=== PATIENT | male | born 1950 | race Caucasian/White ===

== ENCOUNTER 2025-09-19 12:20 | Emergency (ER) | payer MEDICARE, SELFPAY ==
--- NOTE | ~2025-09-19 | CT_ITS ---
EXAMINATION: CT abdomen pelvis w con DATE: 09/19/2025 13:43 INDICATION: Abdominal pain TECHNIQUE: Computed tomography (CT) of the abdomen and pelvis was performed with 100 mL Omnipaque-350 intravenous contrast. Automated exposure control and iterative reconstruction technique were employed. The dose-length product was 527.77 mGy-cm. COMPARISON: None FINDINGS: Mild dependent atelectasis in bilateral lower lobes. Heart size is normal. Atherosclerotic coronary artery calcification and aortic valve calcification. No pericardial or pleural effusion. Liver, gallbladder, spleen, pancreas, bilateral adrenal glands are normal. Bilateral renal cysts the largest on the left measuring 2.3 cm. There are few tiny calcifications at the bilateral renal yulissa which appear more likely to represent atherosclerotic calcifications as opposed to nonobstructing renal stones. Bladder is normal. Prostatomegaly 5.6 x 3.7 cm in maximal diameter. The colon and proximal small bowel is relatively decompressed. There are multiple loops of mildly dilated gas-filled loops of small bowel predominantly in the anterior left abdomen consistent with bowel obstruction. There appears to be a transition point anterior to the right kidney where the bowel appears to foraminal around the mesentery. There is air-fluid level within a larger diameter loop of bowel in the anterior right upper quadr ant possibly representing the cecum. There is no abnormal course of the proximal small bowel with the 2 due to jejunal junction is positioned to the right of the aorta but still to the left of the superior mesenteric artery and veins which are deviated towards the right abdomen. Is unclear whether this represents a developmental bowel malrotation or whether this results from mass effect from the dilated loops of bowel in the left abdomen. There does appear to be relatively decreased enhancement of the bowel mucosa of several the fluid-filled loops of bowel in the right abdomen when compared with the fluid-filled loops of bowel in the left abdomen which does raise some concern for secondary ischemia. Gas and fluid distends the proximal stomach however this remains separate from the dilated small bowel with of the decompressed intervening duodenum and proximal jejunum. There is calcified atherosclerosis of the aorta and many of the other arteries. 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 No free intraperitoneal gas or fluid. No pathologically enlarged abdominal or pelvic lymphadenopathy. Severe lumbar and lower thoracic spondylosis with chronic appearing L1 compression fracture with superimposed Schmorl's node along the depressed superior endplate. IMPRESSION: 1. Small bowel obstruction with transition point in the right lower quadrant with bowel appears to swallow around the mesenteric vascular pedicle raising suspicion for a volvulus potentially related to a developmental malrotation as detailed above. The bowel mucosa is very difficult to discern with the loops of bowel in the anterior right abdomen particularly when compared with the clearly delineate mucosal enhancement of the fluid-filled bowels in the left abdomen which raises concern for secondary ischemia. Dr. Reese discussed these findings with Dr. Perales at 12:05 PM. Reviewed, dictated and finalized at location A. D STRATEGY MANAGER IMPRESSION: 1. Small bowel obstruction with transition point in the right lower quadrant wi th bowel appears to swallow around the mesenteric vascular pedicle raising susp icion for a volvulus potentially related to a developmental malrotation as deta iled above. The bowel mucosa is very difficult to discern with the loops of bow el in the anterior right abdomen particularly when compared with the clearly de lineate mucosal enhancement of the fluid-filled bowels in the left abdomen whic h raises concern for secondary ischemia. Dr. Reese discussed these findings with Dr. Perales at 12:05 PM.
[2025-09-19 12:49] VITALS: BP 151/79; PULSE 72; RESP 20; TEMP 36.7; O2SAT 100
--- NOTE | 2025-09-19 12:53 | ED_ITS ---
HPI - Abdominal Pain General Chief Complaint: Abdominal Pain Stated Complaint: weakness after attempting bm Source: patient, family and EMS History of Present Illness HPI narrative: 75 years old white male came from home by ambulance with his family complaining of abdominal pain started this morning, steady, denies any fever, chills, nausea, vomiting, or constipation. Patient reports history of diarrhea, 3-4 times a day for the last 2 years, did not see any physician for that before. Patient did not eat his breakfast today, received all his morning medications,. Reports sneezing over the last few days. History of hypertension, hyperlipidemia, poor peripheral circulation. Patient smokes cigarettes, drink alcohol daily, denies drug use. Patient denies any history of abdominal surgery. Related Data Home Medications ?Medication ?Instructions ?Recorded ?Confirmed ?Last Taken ?Type atorvastatin 40 mg tablet (Lipitor) 40 mg PO DAILY 11/01 Unknown History cilostazol 100 mg tablet 100 mg PO BID 09/19/25 Unkn own History clopidogrel 75 mg tablet 75 mg PO DAILY 09/19/25 Unk nown History lisinopril 40 mg tablet 40 mg PO DAILY 09/19/25 Unk nown History Allergies Allergy/AdvReac Type Severity Reaction Status Date / Time Penicillins Allergy Mild Unknown Verified 09/19/25 12:47 read meat Allergy Mild Unknown Uncoded 09/19/25 12:47 Review of Systems 2 Review of Systems: All systems reviewed & are unremarkable except as noted in HPI and below Exam 2 Narrative: General appearance: Well-developed, well-nourished Skin: Normal color Head: Normocephalic, nontraumatic Eyes: Clear conjunctiva ENT: Oropharynx normal, ears normal, nose normal Neck: Supple, nontender Chest and respiratory: Airway patent, no respiratory distress, no accessory muscle use Heart: Regular rate/rhythm Abdomen: Soft, diffuse tenderness epigastric and right upper quadrant, questionable hepatomegaly Vascular: Normal peripheral pulses, normal capillary refill. Musculoskeletal: Normal range of motion, nontender back Neurologic: Alert and oriented ?3, JAVASCRIPT PROGRAMMER is normal as tested, no gross motor deficit Course Vital Signs Vital signs: Vital Signs Temperature 36.7 C 09/19/25 12:49 Pulse Rate 72 09/19/25 12:49 Respiratory Rate 20 09/19/25 12:49 Blood Pressure 151/79 H 09/19/25 12:49 Pulse Oximetry 100 09/19/25 12:49 Oxygen Delivery Room Air 09/19/25 12:49 Temperature 36.7 C 09/19/25 12:49 Pulse Rate 72 09/19/25 12:49 Respiratory Rate 20 09/19/25 12:49 Blood Pressure 151/79 H 09/19/25 12:49 Pulse Oximetry 100 09/19/25 12:49 Oxygen Delivery Room Air 09/19/25 12:49 MDM - Abdominal Pain MDM Narrative Medical decision making narrative: Patient presents with abdominal pain started this morning Vital signs showing blood pressure 151/79 otherwise within normal limit Physical examination showing tenderness epigastric and right upper quadrant area otherwise within normal limit Differential diagnosis include: Cholecystitis, appendicitis, pancreatitis, esophagitis, gastritis, hepatomegaly, alcoholic hepatitis, diverticulitis, colitis, or urinary tract infection Blood workup today includes CBC, CMP, lipase, lactic acid, troponin and coags showed WBC 11.7, total bilirubin 1.8, otherwise within normal limit Patient tested negative for COVID flu RSV EKG showed normal sinus rhythm CT abdomen and pelvis with IV contrast showed small-bowel obstruction, questionable volvulus, secondary ischemia Patient requested to go to [facility] Accepted by Dr. Iqbal. The surgeon on-call Differential Diagnosis Differential diagnosis: Likely other (As above) Lab Data Attestation: I reviewed the patient's lab results. 09/19/25 13:07 09/19/25 13:07 Labs: Lab Results 09/19/25 09/19/25 Range/Units 12:59 13:07 WBC 11.7 H (4.8-10.8) K/mm3 RBC 3.94 L (4.70-6.10) M/mm3 Hgb 14.0 (12.4-15.3) g/dL Hct 39.6 (37.0-46.0) % MCV 100.5 (78.0-102.0) fL MCH 35.5 H (27.0-31.0) pg MCHC 35.4 (32-36) g/dL RDW 12.1 (11.6-14.4) % Plt Count 245 (150-420) K/mm3 MPV 9.4 (8.7-11.0) fl Immature Gran % (Auto) 0.6 H (0.0-0.0) % Neut % (Auto) 81.9 H (50.0-70.0) % Lymph % (Auto) 11.0 L (18.0-42.0) % Grand % (Auto) 5.7 (2.0-11.0) % Eos % (Auto) 0.4 L (1.0-6.0) % Baso % (Auto) 0.4 (0.0-1.0) % Lymph # (Auto) 1.28 (1.10-4.50) K/mm3 Grand # (Auto) 0.67 (0.10-0.90) K/mm3 Eos # (Auto) 0.05 (0.02-0.50) K/mm3 Baso # (Auto) 0.05 (0.00-0.10) K/mm3 Abs Immat Gran (auto) 0.07 H (0.00-0.00) K/mm3 Absolute Neuts (auto) 9.55 H (1.70-7.20) K/mm3 Absolute Nucleated RBC 0.00 (0.00-0.00) K/mm3 Nucleated RBC % 0.0 (0-0.0) % PT 11.2 (9.50-12.1) Seconds INR 1.0 APTT 26.5 (23.9-30.70) Sec Sodium 139 (137-145) mmol/L Potassium 4.2 (3.4-5.0) mmol/L Chloride 104 (98-107) mmol/L Carbon Dioxide 27 (22-30) mmol/L Anion Gap 8 (4-12) mmol/L BUN 8 L (9-20) mg/dL Creatinine 0.74 (0.7-1.3) mg/dL Estim Creat Clear Calc 71 ml/min Estimated GFR > 60 (59 - ) Glucose 131 H (65-110) mg/dL Calculated Osmolality 288 (285-295) mOsm/kg Lactic Acid 1.4 (0.7-2.0) mmol/L Calcium 9.3 (8.4-10.2) mg/dL Total Bilirubin 1.8 H (0.2-1.3) mg/dL AST 32 (17-59) U/L ALT 20 (6-50) U/L Alkaline Phosphatase 74 (38-126) U/L Troponin I < 0.012 (0.000-0.034) ng/mL Total Protein 7.1 (6.3-8.2) g/dL Albumin 4.7 (3.5-5.1) g/dL Lipase 49 (23-300) U/L Ethyl Alcohol < 10 (<10) mg/dL Influenza A (RT-PCR) Negative (Negative) Influenza B (RT-PCR) Negative (Negative) RSV (RT-PCR) Negative (Negative) SARS-CoV-2 RNA (RT-PCR) Negative (Negative) Imaging Data Radiologist's impression: ITS Impressions Abdomen/Pelvis CT 09/19/25 13:48 IMPRESSION: 1. Small bowel obstruction with transition point in the right lower quadrant with bowel appears to swallow around the mesenteric vascular pedicle raising suspicion for a volvulus potentially related to a developmental malrotation as detailed above. The bowel mucosa is very difficult to discern with the loops of bowel in the anterior right abdomen particularly when compared with the clearly delineate mucosal enhancement of the fluid-filled bowels in the left abdomen which raises concern for secondary ischemia. Dr. Reese discussed these findings with Dr. Perales at 12:05 PM. ECG Data EKG #1: Attestation: I personally reviewed and interpreted this ECG as follows: ECG completion date: 09/19/25 Interpretation: Normal sinus rhythm at 73 beats per minute, poor R-wave progression, possible septal myocardial infarction age indeterminate, borderline EKG Critical Care Time Critical Care Time Critical Care Time: No Discharge Plan Discharge Clinical Impression: Small bowel obstruction, Cecal volvulus Patient Disposition: Acute Care Hospital Condition: Guarded Prognosis Additional Instructions: Transferred to [facility] Patient Language: Belgian Prescriptions: No Action lisinopril 40 mg tablet 40 mg PO DAILY cilostazol 100 mg tablet 100 mg PO BID clopidogrel 75 mg tablet 75 mg PO DAILY atorvastatin [Lipitor] 40 mg tablet 40 mg PO DAILY Follow-up/Referrals: Kaden Abrams MD [Primary Care Provider, Internal Medicine]
--- NOTE | 2025-09-19 12:54 | ECG_ITS ---
Test Date: 2025-09-19 13:15:34 Measurements Intervals [place] Rate: 73 P: 65 ID: [id number] QRS: -18 QRSD: 98 T: 63 QT: 390 QTc: 430 Interpretive Statements SINUS RHYTHM No previous ECG available for comparison Electronically Signed On 09-19-2025 13:24:59 PULVERIZER MILL OPERATOR by Caleb Saenz M.D.
[2025-09-19 13:11] LABS: Hematocrit 39.6 % (37.0-46.0); Hemoglobin 14.0 g/dL (12.4-15.3); Immature Granulocyte Percent A 0.6 % (0.0-0.0); Lymphocytes Absolute Auto 1.28 K/mm3 (1.10-4.50); Mean Corpuscular HGB Conc 35.4 g/dL (32-36); Mean Corpuscular Hemoglobin 35.5 pg (27.0-31.0); Mean Corpuscular Volume 100.5 fL (78.0-102.0); Nucleated Red Blood Cells Absolute Auto 0.00 K/mm3 (0.00-0.00); Nucleated Red Blood Cells Perc 0.0 % (0-0.0); Platelet Count Result 245 K/mm3 (150-420); Red Blood Count 3.94 M/mm3 (4.70-6.10); White Blood Count 11.7 K/mm3 (4.8-10.8)
[2025-09-19] MEDS: HYDROmorphone HCL INJ (*CRX) 2 MG/ML VIAL 0.5 MG IV PUSH ×2 (13:17→13:51)
[2025-09-19] MEDS: ONDANSETRON INJ 4 MG/2 ML VIAL IV PUSH (13:17)
[2025-09-19] MEDS: SODIUM CHLORIDE 0.9% IV 1,000 ML 999 ML IV CONT (13:17)
[2025-09-19 13:24] LABS: Alanine Aminotransferase 20 U/L (6-50); Albumin Level 4.7 g/dL (3.5-5.1); Alkaline Phosphatase 74 U/L (38-126); Anion Gap 8 mmol/L (4-12); Aspartate Amino Transferase 32 U/L (17-59); Blood Urea Nitrogen 8 mg/dL (9-20); Calcium 9.3 mg/dL (8.4-10.2); Carbon Dioxide 27 mmol/L (22-30); Chloride 104 mmol/L (98-107); Estimated CRCL calculation 71 ml/min; Estimated Glomerular Filt Rate > 60; Glucose 131 mg/dL (65-110); Lipase 49 U/L (23-300); Osmolality Calculated 288 mOsm/kg (285-295); Potassium 4.2 mmol/L (3.4-5.0); Sodium 139 mmol/L (137-145); Total Protein 7.1 g/dL (6.3-8.2)
[2025-09-19 13:25] LABS: INR 1.0; Partial Thromboplastin Time 26.5 Sec (23.9-30.70); Prothrombin Time 11.2 Seconds (9.50-12.1)
[2025-09-19 13:35] LABS: Troponin I < 0.012 ng/mL (0.000-0.034)
[2025-09-19 13:48] LABS: Influenza A QL RT-PCR Negative (Negative); Influenza B QL RT-PCR Negative (Negative); RSV RNA, RT-PCR Negative (Negative); SARS-CoV-2 RNA PCR Negative (Negative)
[2025-09-19 14:30] VITALS: BP 137/89; PULSE 93; RESP 20; O2SAT 98
[2025-09-19 15:02] VITALS: BP 124/80; PULSE 90; RESP 20; O2SAT 96
[2025-09-19 15:30] VITALS: BP 147/84; PULSE 90; RESP 20; O2SAT 98
[2025-09-19 16:00] VITALS: BP 134/78; PULSE 89; RESP 20; O2SAT 97
[2025-09-19 16:45] VITALS: BP 138/86; PULSE 91; RESP 20; TEMP 36.7; O2SAT 97
[2025-09-25 13:12] LABS: Bilirubin,Total 0.8 mg/dL (0.2-1.3)
== END 2025-09-19 16:45 | disposition short-term general hospital (02) ==
PROVIDERS: Emergency Provider Emergency Medicine; PCP Internal Medicine
DX: K56.609 Unspecified intestinal obstruction, unspecified as to partial versus complete obstruction (principal); K56.2 Volvulus; I10 Essential (primary) hypertension; E78.5 Hyperlipidemia, unspecified; F17.210 Nicotine dependence, cigarettes, uncomplicated; Z79.899 Other long term (current) drug therapy; Z20.822 Contact with and (suspected) exposure to COVID-19
CPT/HCPCS: 36415; 74177; 80053; 82077; 83605; 83690; 84484; 85025; 85610; 85730; 87637; 93005; 96361; 96374; 96375; 96376; 99285; J1171; J2405; J7030; Q9967

== ENCOUNTER 2025-10-23 14:19 | Outpatient (CLI) | payer MEDICARE, SELFPAY ==
--- NOTE | ~2025-10-23 | XR_ITS ---
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 Findings: No acute fracture or malalignment. No significant degenerative changes. Soft tissues unremarkable. Impression: No acute fracture or malalignment. Reviewed, dictated and finalized at location P. NG MACHINE SET UP OPERATOR Impression: No acute fracture or malalignment.
[2025-10-23 14:35] LABS: Hematocrit 37.0 % (37.0-46.0); Hemoglobin 12.8 g/dL (12.4-15.3); Mean Corpuscular HGB Conc 34.6 g/dL (32-36); Mean Corpuscular Hemoglobin 34.5 pg (27.0-31.0); Mean Corpuscular Volume 99.7 fL (78.0-102.0); Platelet Count Result 293 K/mm3 (150-420); Red Blood Count 3.71 M/mm3 (4.70-6.10); White Blood Count 8.5 K/mm3 (4.8-10.8)
[2025-10-23 14:55] LABS: Alanine Aminotransferase 19 U/L (6-50); Albumin Level 4.2 g/dL (3.5-5.1); Alkaline Phosphatase 86 U/L (38-126); Anion Gap 9 mmol/L (4-12); Aspartate Amino Transferase 28 U/L (17-59); Bilirubin,Total 0.5 mg/dL (0.2-1.3); Blood Urea Nitrogen 6 mg/dL (9-20); CRP < 0.5 mg/dL (<1.0); Calcium 9.1 mg/dL (8.4-10.2); Carbon Dioxide 25 mmol/L (22-30); Chloride 104 mmol/L (98-107); Estimated Glomerular Filt Rate > 60; Glucose 103 mg/dL (65-110); Osmolality Calculated 283 mOsm/kg (285-295); Potassium 3.9 mmol/L (3.4-5.0); Sodium 138 mmol/L (137-145); Total Protein 6.5 g/dL (6.3-8.2); Uric Acid 5.3 mg/dL (3.5-8.5)
--- OUTSIDE RECORDS SUMMARY | 2025-10-23 16:52 | XMS_ITS | Encounter Summary ---
Author Organization [facility] Address [address] [place] [address] Care Team Providers Care Construction Equipment Technician Name Role Phone Rojas Easton MD Primary Care Provider [phone] Luis Daniel Rose MD Unavailable [phone] Ziggy Ramos MD Unavailable [phone] Gus Currie MD Unavailable [phone] Kaden Abrams MD Primary Care Provider [phone] Encounter Details Date Type Department Care Team ([facility] Contact Info) Description 03/14/2024 Prep for Procedure [facility] eld [address] [place] [address] Ziggy Ramos MD [address] [facility] [address] [place] [address] Social History Tobacco Use Types Packs/Day Years Used Date Smoking Tobacco: Every Day Cigarettes 1 60 Started: 1968 Smokeless Tobacco: Never Alcohol Use Standard Drinks/Week Comments Yes 0 (1 standard drink = 0.6 oz pur e alcohol) Beer AUDIT-C Answer Date Recorded Frequency of Alcohol Consumption 4 or more times a week 07/19/2019 Average Number of Drinks 7 to 9 019 Frequency of Binge Drinking Not on file 07/09 Sex and Gender Information Value Date Recorded Sex Assigned at Male 12/19/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 Wish to be (Past 1 Month) No 03/16/2024 8:06 AM CDT Marisol Flores RN Active 2. Non-Specific Active Suicidal Thoughts (Past 1 Month) No 03/16/2024 8:06 AM CDT Marisol Flores RN Active 6. Suicidal Behavior (Lifetime) No 03/16/2024 8:06 AM CDT Marisol Flores RN Active documented as of this encounter Plan of Treatment Upcoming Encounters Date Type Department Care Team (Late st Contact Info) Description 09/03/2026 12:30 PM CDT Office Visit [facility] [address] [place] [address] Ziggy Ramos MD [address] [address] documented as of this encounter Visit Diagnoses Not on filedocumented in this encounter Care Teams Construction Equipment Technician Relationship Specialty Start Date End Date Rojas Easton MD PCP - General FAMILY PRACTICE 05/23/19 07/31/25 Kaden Abrams MD [address] [place] [id number] PCP - General INTERNAL MEDICINE 09/10/25 Luis Daniel Rose MD [address] [place] [address] [place], [place] [id number] ORTHOPAEDIC SURGERY 03/02/24 Ziggy Ramos MD [address] [address] Vascular/Hand Rug Cleaner INTERVENTIONAL CARDIOLOGY 03/02/24 Gus Currie MD [address] [place] [address] Consulting Physician Thoracic Surgery (Cardiothoracic Vascular Surgery) 07/28/24 documented as of this encounter
--- OUTSIDE RECORDS SUMMARY | 2025-10-23 16:52 | XMS_ITS | Encounter Summary ---
Author Organization [facility] Address [address] [place] [address] Care Team Providers Care Centerless Grinder Tender Name Role Phone Rojas Easton MD Primary Care Provider [phone] Luis Daniel Rose MD Unavailable [phone] Ziggy Ramos MD Unavailable [phone] Gus Currie MD Unavailable [phone] Kaden Abrams MD Primary Care Provider [phone] Encounter Details Date Type Department Care Team (Late st Contact Info) Description 03/13/2024 Hospital Orders Only [place] Charger Tester Pre/Post [address] [place] [address] Ziggy Ramos MD [address] [facility] [address] [place] [address] Social History Tobacco Use Types Packs/Day Years [...] Sex Assigned at Male 12/19/2024 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 Legal Sex Male 7:55 PM CDT Gender Identity Not on file Sexual Orientation Not on file documented as of this encounter Functional Status * Calculated C-SSRS Risk Score (Lifetime/Recent) Answer Date of Assessment Author Status No Risk Indicated 03/16/2024 8:06 AM CDT Coy Flores RN Active * [place] Suicide Severity Rating Scale (Screener/Recent Self-Report) Question [...] Description 09/03/2026 12:30 PM CDT Office Visit [facility] [address] [place] [phone] Ziggy Ramos MD [address] [address] documented as of this encounter Visit Diagnoses Not on filedocumented in this encounter Care Teams Centerless Grinder Tender Relationship Specialty Start Date End Date Rojas Easton MD PCP - General FAMILY PRACTICE 05/23/19 07/31/25 Kaden Abrams MD [address] [place] [phone] PCP - General INTERNAL MEDICINE 09/10/25 Luis Daniel Rose MD [address] [place] [address] [place], [place] [id number] ORTHOPAEDIC SURGERY 03/02/24 Ziggy Ramos MD [address] [address] Vascular/Gas Charger INTERVENTIONAL CARDIOLOGY 03/02/24 Gus Currie MD [address] [place] [address] Consulting Physician Thoracic Surgery (Cardiothoracic Vascular Surgery) 07/28/24 documented as of this encounter
--- OUTSIDE RECORDS SUMMARY | 2025-10-23 16:52 | XMS_ITS | Encounter Summary ---
Author Organization [facility] Address [address] [place] [address] Care Team Providers Care Rehabilitation Worker Name Role Phone Rojas Easton MD Primary Care Provider [phone] Luis Daniel Rose MD Unavailable [phone] Ziggy Ramos MD Unavailable [phone] Gus Currie MD Unavailable [phone] Kaden Abrams MD Primary Care Provider [phone] Encounter Details Date Type Department Care Team (Late st Contact Info) Description 04/15/2019 Abstract [facility] [address] [place] [address] , Generic Conversion, Social History Tobacco Use Types Packs/Day Years Used Date Smoking Tobacco: Never Assessed Sex and Gender Information Value Date Recorded Sex Assigned at Male 12/19/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 Legal Sex Male 7:55 PM CDT Gender Identity Not on file Sexual Orientation Not on file documented as of this encounter Plan of Treatment Upcoming Encounters Date Type Department Care Team (Late Contact Info) Description 09/03/2026 12:30 PM CDT [facility] [address] [place] [phone] Ziggy Ramos MD [address] [facility] [address] [address] documented as of this encounter Visit Diagnoses Not on filedocumented in this encounter Care Teams Rehabilitation Worker Relationship Specialty Start Date End Date Rojas Easton MD PCP - General FAMILY PRACTICE 05/23/19 07/31/25 Kaden Abrams MD [address] [place] [address] PCP - General INTERNAL MEDICINE 09/10/25 Luis Daniel Rose MD [address] [place] [address] ORTHOPAEDIC SURGERY 03/02/24 Ziggy Ramos MD [address] [facility] [address] [address] Vascular/Research And Development Director INTERVENTIONAL CARDIOLOGY 03/02/24 Gus Currie MD [address] [place] [address] Consulting Physician Thoracic Surgery (Cardiothoracic Vascular Surgery) 07/28/24 documented as of this encounter
--- OUTSIDE RECORDS SUMMARY | 2025-10-23 16:52 | XMS_ITS | Clinical Summary ---
Author Organization [facility] Address [address] [place] [address] Care Team Providers Care Rn Prior Authorization Name Role Phone ScooperLuis Daniel MD Unavailable [phone] Ziggy Ramos MD Unavailable [phone] Gus Currie MD Unavailable [phone] Kaden Abrams MD Primary Care Provider [phone] Allergies Active Allergy Reactions Criticality Noted Date Comments Bovine (Beef) Protein-Containing Drug Products Hives Medium 07/19/2019 Red Meat Penicillins Hives Medium 07/28/2018 Pt has tolerated cefazolin (2023) Medications acetaminophen (TYLENOL) 500 MG tablet Take 2 tablets (1,000 mg total) by mouth 4 (four) times daily. As needed Active lisinopril (PRINIVIL) 5 MG tablet Take 1 tablet (5 mg total) by mouth daily. 90 tablet 3 5 11/21/19 Active COMPRESSION STOCKINGS, DME,Indications:P VD (peripheral vascular disease) with claudication Left leg- Knee High 15-20 mmHg Dx: I83.893 1 Package 2 5 Active cilostazol (PLETAL) 100 MG tablet TAKE ONE TABLET BY MOUTH TWICE A DAY 180 tablet 3 5 Active clopidogrel (PLAVIX) 75 MG tablet TAKE 1 TABLET (75 MG TOTAL) BY MOUTH DAILY. 90 tablet 3 5 03/23/20 26 Active atorvastatin (LIPITOR) 40 MG tablet TAKE 1 TABLET (40 MG TOTAL) BY MOUTH NIGHTLY AT BEDTIME. 30 tablet 11 5 Active metroNIDAZOLE (FLAGYL) 500 MG tablet Take 1 tablet (500 mg total) by mouth 2 (two) times daily for 10 days. 20 tablet 5 10/05/20 25 sulfamethoxazole- trimethoprim (BACTRIM DS) 800-160 MG tablet Take 1 tablet by mouth 2 (two) times daily for 10 days. 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 03/09/2024 PVD (peripheral vascular disease) with claudicat ion 03/01/2024 Osteoarthritis of glenohumeral joints, bilateral 06/03/2020 Resolved Problems Problem Noted Date Diagnosed Date Resolved Date Small bowel obstruction 09/19/202509/08 Encounters Date Type Department Care Team Description 09/19/2025 5:49 PM EXPLOSIVES HANDLER - 09/25/2025 11:32 AM [facility] Hospital Encounter [place] [address] [place] [address] Aida Dave MD [place], MD Gladys Crockett Seif, MD [place], Tu Fiore MD Abdominal Pain Discharge Disposition: Home or Self Care (Routine Discharge) 09/19/2025 Travel 09/10/2025 Telephone [employer] [facility] [address] [place] [address] Ziggy Ramos MD Results 09/10/2025 Telephone [place] [facility] [address] [place] [address] Ziggy Ramos MD Medication 09/05/2025 Telephone [place] [facility] [address] [place] [address] Ziggy Ramos MD Reschedule (Clinic schedule change) 08/27/2025 Telephone [employer] [facility] [address] [place] [address] Ziggy Ramos MD Appointment Request 08/21/2025 2:45 PM CDT Office Visit [facility] [address] [place] [address] Ziggy Ramos MD Peripheral Vascular Disease; Follow Up; Hyperlipidemia 08/21/2025 Travel 08/20/2025 Orders Only [facility] [address] [place] [address] Ziggy Ramos MD 08/20/2025 Telephone [facility] [address] [place] [address] Ziggy Ramos MD Appointment Reminder 08/01/2025 7:30 AM CDT - 08/01/2025 11:59 PM CDT Hospital Encounter [place] [address] [facility] [place] [address] Ziggy Ramos MD Discharge Disposition: Home or Self Care (Routine Discharge) 08/01/2025 Travel from Last 3 Months Immunizations Immunization Administration Dates Next Due Fluzone (IIV3, Trivalent, 0.5 ML Prefilled Syrin ge) 08/26/2024 Fluzone High Dose - >Age 65 (Prefilled Syringe) 07/29/2022,09/04/2021 Influenza Adult (Generic) 08/30/2020 Td (TDVAX) 06/10/1993 Tdap (Adacel) 07/25/2018 Tetanus/Diptheria 06/10/1993 Family History Medical History Relation Comments Hypertension Brother 1 Kidney Disease Brother 1 Asthma Brother 2 Lung Cancer Father Depression Maternal Grandfather No Known Problems Maternal Grandmother Alzheimers Mother Breast Cancer Mother No Known Problems Paternal Grandfather No Known Problems Paternal Grandmother Relation Status Comments Brother 1 Alive Brother 2 Alive Father Maternal Grandfather Maternal Grandmother Mother Paternal Grandfather Paternal Grandmother Social History Tobacco Use Types Packs/Day Years Used Date Smoking Tobacco: Every Day Cigarettes 1 60 Started: 1967 Smokeless Tobacco: Never Tobacco Cessation:Ready to Q uit: No; Counseling Given: Yes Alcohol Use Standard Drinks/Week Comments Yes 28 (1 standard drink = 0.6 oz pu re alcohol) Beer [facility] Utilities Answer Date Recorded In the past 12 months has th e electric, gas, oil, or water company threatened to shut off services in your home? No 08/26/2024 Humiliation, Afraid, Rape, and Kick questionnair e Answer Date Recorded Within the last year, have y ou been afraid of your partner or ex-partner? No 08/26/2024 Within the last year, have y ou been humiliated or emotionally abused in other ways by your partner or ex-partner? No Within the last year, have y ou been kicked, hit, slapped, or otherwise physically hurt by your partner or ex-partner? No 08/26/2024 Within the last year, have y ou been raped or forced to have any kind of sexual activity by your partner or ex-partner? No 08/26/2024 AUDIT-C Answer Date Recorded Frequency of Alcohol Consumption 4 or more times a week 07/19/2019 Average Number of Drinks 7 to 9 019 Frequency of Binge Drinking Not on file 07/09 Overall Financial Resource Strain (CARDIA) Answe r Date Recorded How hard is it for you to pa y for the very basics like food, housing, medical care, and heating? Not hard at all 08/26/2024 Hunger Vital Sign Answer Date Recorded Within the past 12 months, y ou worried that your food would run out before you got the money to buy more. Never true 08/26/20 24 Within the past 12 months, t he food you bought just didn't last and you didn't have money to get more. Never true 08/26/2024 PRAPARE - Transportation Answer Date Re corded In the past 12 months, has l ack of transportation kept you from medical appointments or from getting medications? No 08/08 In the past 12 months, has l ack of transportation kept you from meetings, work, or from getting things needed for daily living? No 08/26/2024 Housing Stability Vital Sign Answer Clyde e Recorded In the last 12 months, was t here a time when you were not able to pay the mortgage or rent on time? No 08/26/2024 In the past 12 months, how m any times have you moved where you were living? 0 08/26/2024 At any time in the past 12 m [facility], were you homeless or living in a mcfp (including now)? No 08/26/2024 Humiliation, Afraid, Rape, and Kick questionnair e Answer Date Recorded Within the last year, have y ou been afraid of your partner or ex-partner? No 09/20/2025 Within the last year, have y ou been humiliated or emotionally abused in other ways by your partner or ex-partner? No Within the last year, have y ou been kicked, hit, slapped, or otherwise physically hurt by your partner or ex-partner? No 09/20/2025 Within the last year, have y ou been raped or forced to have any kind of sexual activity by your partner or ex-partner? No 09/20/2025 Social Connection and Isolation Panel Answer Date Recorded In a typical week, how many times do you talk on the phone with family, friends, or neighbors? Never 09/20/2025 How often do you get together with friends or re latives? Never 09/20/2025 How often do you attend samaritan or confucianist serv ices? Never 09/20/2025 Do you belong to any clubs o r organizations such as samaritan groups, unions, fraternal or athletic groups, or school groups? Yes 09/20/2025 How often do you attend meet ings of the clubs or organizations you belong to? Never 09/20/2025 Are you , , di vorced, , never , or living with a partner? 09/20/2025 AUDIT-C Answer Date Recorded Q1: How often do you have a drink containing alcohol? 4 or more times a week 09/20/2025 Q2: How many drinks containi ng alcohol do you have on a typical day when you are drinking? 7 to 9 Q3: How often do you have si x or more drinks on one occasion? Never 09/20/2025 Overall Financial Resource Strain (CARDIA) Answe r Date Recorded How hard is it for you to pa y for the very basics like food, housing, medical care, and heating? Not hard at all 09/20/2025 [facility] [place] of Occupat ional Health - Occupational Stress Questionnaire Answer Date Recorded Do you feel stress - tense, restless, nervous, or anxious, or unable to sleep at night because your mind is troubled all the time - these days? Not at all 09/20/2025 Exercise Vital Sign Answer Date Recorde d On average, how many days pe r week do you engage in moderate to strenuous exercise (like a brisk walk)? 0 days 09/20/2025 On average, how many minutes do you engage in exercise at this level? 0 min 09/20/2025 Hunger Vital Sign Answer Date Recorded Within the past 12 months, y ou worried that your food would run out before you got the money to buy more. Never true 09/20/20 25 Within the past 12 months, t he food you bought just didn't last and you didn't have money to get more. Never true 09/20/2025 PRAPARE - Transportation Answer Date Re corded In the past 12 months, has l ack of transportation kept you from medical appointments or from getting medications? No 09/08 In the past 12 months, has l ack of transportation kept you from meetings, work, or from getting things needed for daily living? No 09/20/2025 Housing Stability Vital Sign Answer Clyde e Recorded In the last 12 months, was t here a time when you were not able to pay the mortgage or rent on time? No 09/20/2025 In the past 12 months, how m any times have you moved where you were living? 0 09/20/2025 At any time in the past 12 m the rehabilitation institute, were you homeless or living in a mcfp (including now)? No 09/20/2025 B1300 Health Literacy Answer Date Recor ded How often do you need to hav e someone help you when you read instructions, pamphlets, or other written material from your doctor or pharmacy? Never 09/20/2025 [facility] Utilities Answer Date Recorded In the past 12 months has e [employer], gas, oil, or water [employer] threatened to shut off services in your home? No 09/20/2025 Sex and Gender Information Value Date Recorded Sex Assigned at Male 12/19/2024 8:40 AM EXPLOSIVES HANDLER Legal Sex Male 7:55 PM CDT Gender Identity Not on file Sexual Orientation Not on file Last Filed Vital Signs Vital Sign Reading Time Taken Comments Blood Pressure 133/74 09/25/2025 7:45 AM EXPLOSIVES HANDLER Pulse 90 09/25/2025 7:45 AM EXPLOSIVES HANDLER Temperature 36.7 C (98.1 F) 09/25/2025 7:45 AM EXPLOSIVES HANDLER Respiratory Rate 18 09/23/2025 11:17 PM EXPLOSIVES HANDLER Oxygen Saturation 92% 09/25/2025 7:45 AM EXPLOSIVES HANDLER Inhaled Oxygen Concentration - - Weight 69.9 kg (154 lb 1.6 oz) 09/19/2025 5:56 P M EXPLOSIVES HANDLER Height 177.8 cm (5' 10) 09/19/2025 5:56 PM EXPLOSIVES HANDLER Body Mass Index 22.11 09/19/2025 5:56 PM EXPLOSIVES HANDLER Plan of Treatment Upcoming Encounters Date Type Department Care Team ([facility] st Contact Info) Description 09/03/2026 12:30 PM CDT Office Visit [facility] [place] [phone] Ziggy Ramos MD [address] [facility] [address] [place] [address] Health Maintenance Due Date Last Done Comments Hepatitis C 1966 Pneumococcal Vaccine: 50+ Years (1 of 2 - PCV) 1967 Zoster Vaccines (1 of 2) 1998 Annual Medicare Wellness Visit 2013 RSV Immunization or 60+ Years (1 - 1-dose 75+ series) 2023 PHQ-2 (Physician [place]) 11/08/2024 COVID-19 Vaccine ( - season) 2025 07/29/2022, 09/24/2021, 01/01/2021, Additional history exists Influenza Adult (#1) 2025 08/26/2024, 07/29/2022, 09/04/2021, Additional history exists Lung Cancer Screening 01/17/2026 01/17/2025 , 01/11/2024, 02/06/2022 DTaP, Tdap and Td Vaccines (2 - Td or Tdap) 07/25/2028 07/25/2018, 06/10/1993, 06/10/1993 Hepatitis A Vaccines Aged Out No long er eligible based on patient's age to complete this topic Meningococcal B Vaccine Aged Out No l onger eligible based on patient's age to complete this topic Meningococcal Vaccine Aged Out No tamara eliot eligible based on patient's age to complete this topic RSV Immunizations Under 20 Months Aged Out No longer eligible based on patient's age to complete this topic Medical Devices Implanted Type Area Lockstitch Front Edge Tape Sewer Device Identifier Shelf Expiration Date Model / Serial / Lot Graft Cv 60cm 8mm 2 Velur; Strt Tube; Knitd; Sft; - [id number] Implanted:Qty: 1 on 08/25/2024 by Gus Currie MD at [facility] Graft [employer] [id number] 09/07/2028 [id number] / [id number] / [id number] Description:Inventory notifi ed - Yngwie Procedures Procedure Name Priority Date/Time Associated Diagnosis Comments PHOSPHORUS, INORGANIC PHOSPHATE TIMED 09/25/2025 4:10 AM EXPLOSIVES HANDLER MAGNESIUM TIMED 09/25/2025 4:10 AM EXPLOSIVES HANDLER BASIC METABOLIC PANEL TIMED 09/25/2025 4:10 AM EXPLOSIVES HANDLER HC CBC W/O DIFF TIMED 09/25/2025 4:10 AM EXPLOSIVES HANDLER FOLIC ACID SERUM Routine 09/24/2025 12:16 PM EXPLOSIVES HANDLER VITAMIN B-12 Routine 09/24/2025 12:16 PM EXPLOSIVES HANDLER GI PANEL PCR - STOOL Nurse Collected Priority 09/24/2025 11:30 AM EXPLOSIVES HANDLER IRON SAT PANEL (IRON,IBC,%SAT) Routine 09/24/2025 5:42 AM EXPLOSIVES HANDLER HC CBC W/O DIFF Routine 09/24/2025 5:42 AM EXPLOSIVES HANDLER BASIC METABOLIC PANEL Routine 09/24/2025 5:[address] ABD+PEL W CON MADDY 09/23/2025 10:27 AM EXPLOSIVES HANDLER HC CBC W/O DIFF Routine 09/23/2025 5:21 AM EXPLOSIVES HANDLER BASIC METABOLIC PANEL Routine 09/23/2025 5:21 AM EXPLOSIVES HANDLER FOLIC ACID SERUM Routine 09/22/2025 10:04 AM EXPLOSIVES HANDLER VITAMIN B-12 Routine 09/22/2025 10:04 AM EXPLOSIVES HANDLER IRON SAT PANEL (IRON,IBC,%SAT) Routine 09/22/2025 10:04 AM EXPLOSIVES HANDLER PHOSPHORUS, INORGANIC PHOSPHATE Routine 09/22/2025 6:11 AM EXPLOSIVES HANDLER MAGNESIUM Routine 09/22/2025 6:11 AM EXPLOSIVES HANDLER BASIC METABOLIC PANEL Routine 09/22/2025 6:11 AM EXPLOSIVES HANDLER HC CBC W/O DIFF Routine 09/22/2025 6:11 AM EXPLOSIVES HANDLER XR ABD KUB Routine 09/22/2025 5:34 AM EXPLOSIVES HANDLER XR CHEST PORTABLE Today 09/21/2025 10:29 PM EXPLOSIVES HANDLER HEMOGLOBIN AND HEMATOCRIT STAT 09/21/2025 6:28 PM EXPLOSIVES HANDLER XR ABD KUB TIMED 09/21/2025 4:42 PM EXPLOSIVES HANDLER HC CBC W/O DIFF STAT 09/21/2025 6:47 AM EXPLOSIVES HANDLER MAGNESIUM Routine 09/21/2025 6:47 AM EXPLOSIVES HANDLER BASIC METABOLIC PANEL Routine 09/21/2025 6:47 AM EXPLOSIVES HANDLER PHOSPHORUS, INORGANIC PHOSPHATE Routine 09/21/2025 6:47 AM EXPLOSIVES HANDLER XR ABD UPRIGHT Today 09/20/2025 1:24 PM EXPLOSIVES HANDLER CULTURE, BACTERIA, BLOOD TIMED 09/20/2025 9:44 AM EXPLOSIVES HANDLER CULTURE, BACTERIA, BLOOD TIMED 09/20/2025 9:44 AM EXPLOSIVES HANDLER BASIC METABOLIC PANEL Routine 09/20/2025 6:10 AM EXPLOSIVES HANDLER HC CBC W/O DIFF Routine 09/20/2025 6:10 AM EXPLOSIVES HANDLER GASTRIC PH Nurse Collected Priority 09/20/2025 5:08 AM EXPLOSIVES HANDLER XR CHEST PORTABLE Routine 09/20/2025 4:2 3 AM EXPLOSIVES HANDLER XR ABD UPRIGHT STAT 09/19/2025 7:40 PM EXPLOSIVES HANDLER ECG 12-LEAD STAT 09/19/2025 7:32 PM EXPLOSIVES HANDLER HC BLOOD TYPING ABO STAT 09/19/2025 6 :32 PM EXPLOSIVES HANDLER LACTIC ACID W REFLEX (SEPSIS) STAT 09/19/2025 6:32 PM EXPLOSIVES HANDLER COMPREHENSIVE METABOLIC PANEL STAT 09/19/2025 6:32 PM EXPLOSIVES HANDLER HC CBC AUTO W/AUTO DIFF STAT 09/19/2025 6:32 PM EXPLOSIVES HANDLER HC LIPID PANEL Routine 08/01/2025 7:44 AM CDT PVD (peripheral vascular disease) with claudication Mixed hyperlipidemia CT LUNG SCREENING Routine 01/17/2025 10:53 AM CDT History of tobacco use disorder from Last 3 Months or Most Recently Relevant to Health Maintenance Results * PHOSPHORUS, INORGANIC PHOSPHATE (09/25/2025 4:10 AM EXPLOSIVES HANDLER) Only the most recent of3 resultswithin the time period is included. Pathologist [facility] PHOSPHORUS 2.6 2.5 - 4.9 MG/DL 09/25/2025 5:09 AM EXPLOSIVES HANDLER [facility] BLOOD VENOUS BLOOD SPECIMEN / Unknown 09/25/2025 4:10 AM EXPLOSIVES HANDLER Sj Fraga MD LABORATORY Final Result Performing Organization Address City/[facility]/ZIP Co de Phone Number [facility] [address] [place] [address], [id number] * MAGNESIUM (09/25/2025 4:10 AM EXPLOSIVES HANDLER) Only the most recent of3 resultswithin the time period is included. [facility] MAGNESIUM 1.7 1.6 - 2.6 MG/DL 09/25/2025 5:09 AM EXPLOSIVES HANDLER [facility] BLOOD VENOUS BLOOD SPECIMEN / Unknown 09/25/2025 4:10 AM EXPLOSIVES HANDLER Sj Fraga MD LABORATORY Final Result Performing Organization Address [facility] Co de Phone Number [facility] [address] [place] [address], [id number] * (ABNORMAL) CBC, AUTO, NO DIFF (09/25/2025 4:10 AM EXPLOSIVES HANDLER) Only the most recent of6 resultswithin the time period is included. [facility] WBC 8.28 4.00 - 10.80 x10'3/uL 09/25/2025 4:32 AM EXPLOSIVES HANDLER [facility] RBC 3.12(L) 4.50 - 6.10 x10'6/uL 09/25/2025 4:32 AM EXPLOSIVES HANDLER [facility] HGB 11.0(L) 13.0 - 18.0 G/DL 09/25/2025 4:32 AM EXPLOSIVES HANDLER [facility] HCT 30.7(L) 37.0 - 52.0 % 09/25/2025 4:[address] [facility] MCV 98.4 78.0 - 100.0 FL 09/25/2025 4:[address] [facility] MCH 35.3(H) 27.0 - 31.0 PG 09/25/2025 4:[address] [facility] MCHC 35.8 33.0 - 36.0 G/DL 09/25/2025 4:[address] [facility] RDW 12.1 11.5 - 14.5 % 09/25/2025 4:[address] [facility] PLT 193 150 - 350 x10'3/uL 09/25/2025 4:[address] [facility] MPV 9.7 7.4 - 10.4 FL 09/25/2025 4:[address] [facility] BLOOD VENOUS BLOOD SPECIMEN / Unknown 09/25/2025 4:10 AM EXPLOSIVES HANDLER us Sj Fraga MD LABORATORY Final Result [facility] [address] [place] [address], [id number] * (ABNORMAL) BASIC METABOLIC PANEL (09/25/2025 4:10 AM EXPLOSIVES HANDLER) Only the most recent of6 resultswithin the time period is included. SODIUM S/P/B 136 136 - 145 MMOL/L 09/25/2025 5:[address] [facility] POTASSIUM S/P/B 3.6 3.5 - 5.1 MMOL/L 09/25/2025 5:[address] [facility] CHLORIDE S/P/B 106 97 - 115 MMOL/L 09/25/2025 5:[address] [facility] CO2 24.6 21.0 - 32.0 MMOL/L 09/25/2025 5:09 AM EXPLOSIVES HANDLER [facility] GLUCOSE 96 74 - 106 MG/DL 09/25/2025 5:[address] [facility] BUN 4(L) 7 - 18 MG/DL 09/25/2025 5:[address] [facility] CREATININE S/P/B 0.44(L) 0.70 - 1.30 MG/DL 09/25/2025 5:[address] [facility] CALCIUM S/P/B 8.0(L) 8.5 - 10.1 MG/DL 09/25/2025 5:[address] [facility] ANION GAP 5.4 2.0 - 10.0 MMOL/L 09/25/2025 5:[address] [facility] OSMOLALITY (CALC) 279 MOSM/KG 025 5:[address] [facility] Comment:REFERENCE RANGE NOT ESTABLISHED GFR ESTIMATE >90 >90 ML/MIN/1. 73 M2 09/25/2025 5:[address] [facility] GFR NOTES GFR REFERENCE S: 09/25/2025 5:[address] [facility] Comment: THE ESTIMATED GFR IS CALCULATED USING THE 2020 CKD-EPI EQUATION. THE FOLLOWING CATEGORIES FOR GRADING RENAL FUNCTION ARE RECOMMENDED BY THE INTERNATIONAL SOCIETY OF NEPHROLOGY (KDIGO 2012 CLINICAL PRACTICE GUIDELINE). G1,NORMAL OR HIGH: >89 ml/min/1.73 m2 G2,MILDLY DECREASED: 60-89 ml/min/1.73 m2 G3A,MILDLY TO MODERATELY DECREASED: 45-59 ml/min/1.73 m2 G3B,MODERATELY TO SEVERELY DECREASED: 30-44 ml/min/1.73 m2 G4,SEVERELY DECREASED: 15-29 ml/min/1.73 m2 G5,KIDNEY FAILURE: <15 ml/min/1.73 m2 BLOOD VENOUS BLOOD SPECIMEN / Unknown 09/25/2025 4:10 AM EXPLOSIVES HANDLER us Sj Fraga MD LABORATORY Final Result [facility] [address] [place] [address], [id number] * (ABNORMAL) VITAMIN B-12 (09/24/2025 12:16 PM EXPLOSIVES HANDLER) Only the most recent of2 resultswithin the time period is included. [facility] VITAMIN B12 S/P/B 142(L) 193 - 986 PG/ML 09/24/2025 3:12 PM EXPLOSIVES HANDLER [facility] BLOOD VENOUS BLOOD SPECIMEN / Unknown 09/24/2025 12:16 PM EXPLOSIVES HANDLER Josemanuel Ely MD LABORATORY Final Result Performing Organization Address City/[facility]/ZIP Co de Phone Number [facility] [address] [place] [address], [phone] * FOLIC ACID SERUM (09/24/2025 12:16 PM EXPLOSIVES HANDLER) Only the most recent of2 resultswithin the time period is included. [facility] FOLATE 9.1 3.1 - 17.5 NG/ML 09/24/2025 3:12 PM EXPLOSIVES HANDLER [facility] BLOOD VENOUS BLOOD SPECIMEN / Unknown 09/24/2025 12:16 PM EXPLOSIVES HANDLER Josemanuel Ely MD LABORATORY Final Result Performing Organization Address [facility] Co de Phone Number [facility] [address] [place] [address], [phone] * GI PANEL PCR - STOOL (09/24/2025 11:30 AM EXPLOSIVES HANDLER) [facility] CAMPYLOBACTER PCR (STOOL) NOT DETECTED NOT DETECTED 09/25/2025 2:34 PM EXPLOSIVES HANDLER [facility] PLESIOMONAS SHIGELLOIDES PCR (STOOL) NOT DETECTED NOT DETECTED 09/25/2025 2:34 PM EXPLOSIVES HANDLER [facility] SALMONELLA PCR (STOOL) NOT DETECTED NOT DETECTED 09/25/2025 2:34 PM EXPLOSIVES HANDLER [facility] VIBRIO PCR (STOOL) NOT DETECTED NOT DETECTED 09/25/2025 2:34 PM [facility] VIBRIO CHOLERAE PCR (STOOL) NOT DETECTED NOT DETECTED 09/25/2025 2:34 PM [facility] YERSINIA ENTEROCOLITICA PCR (STOOL) NOT DETECTED NOT DETECTED 09/25/2025 2:34 PM [facility] ENTEROAGGREGATIVE ECOLI PCR (STOOL) NOT DETECTED NOT DETECTED 09/25/2025 2:34 PM [facility] ENTEROPATHOGENIC ECOLI PCR (STOOL) NOT DETECTED NOT DETECTED 09/25/2025 2:34 PM [facility] ENTEROTOXIGENIC ECOLI PCR (STOOL) NOT DETECTED NOT DETECTED 09/25/2025 2:34 PM [facility] SHIGA LIKE TOXIN ECOLI PCR (STOOL) NOT DETECTED NOT DETECTED 09/25/2025 2:34 PM [facility] SHIG/ENTEROINVASIVE ECOLI PCR (STOOL) NOT DETECTED NOT DETECTED 09/25/2025 2:34 PM [facility] CRYPTOSPORIDIUM PCR (STOOL) NOT DETECTED NOT DETECTED 09/25/2025 2:34 PM [facility] CYCLOSPORA CAYETANENSIS PCR (STOOL) NOT DETECTED NOT DETECTED 09/25/2025 2:34 PM [facility] ENTAMOEBA HISTOLYTICA PCR (STOOL) NOT DETECTED NOT DETECTED 09/25/2025 2:34 PM [facility] GIARDIA LAMBLIA PCR (STOOL) NOT DETECTED NOT DETECTED 09/25/2025 2:34 PM [facility] ADENOVIRUS F40/41 PCR (STOOL) NOT DETECTED NOT DETECTED 09/25/2025 2:34 PM [facility] ASTROVIRUS PCR (STOOL) NOT DETECTED NOT DETECTED 09/25/2025 2:34 PM [facility] NOROVIRUS GI/GII PCR (STOOL) NOT DETECTED NOT DETECTED 09/25/2025 2:34 PM [facility] ROTAVIRUS A PCR (STOOL) NOT DETECTED NOT DETECTED 09/25/2025 2:34 PM EXPLOSIVES HANDLER [facility] SAPOVIRUS PCR (STOOL) NOT DETECTED NOT DETECTED 09/25/2025 2:34 PM EXPLOSIVES HANDLER [facility] STOOL (Per Rectum) 09/24/2025 11:30 AM EXPLOSIVES HANDLER Lonnie Apple MD MICROBIOLOGY - GENERAL ORDERAB LES Final Result Performing Organization Address [facility] Co de Phone Number [facility] [address] [place] [address], [place] [phone] * (ABNORMAL) IRON SATURATION PANEL (FE,IBC,%SAT) (09/24/2025 5:42 AM EXPLOSIVES HANDLER) Only the most recent of2 resultswithin the time period is included. IRON 21(L) 65 - 175 MCG/DL 09/24/2025 11:[address] [facility] IRON BINDING CAPACITY 176(L) 250 - 450 MCG/DL 09/24/2025 11:07 AM EXPLOSIVES HANDLER [facility] IRON SATURATION 12 % 11:07 AM EXPLOSIVES HANDLER [facility] Comment:REFERENCE RANGE NOT ESTABLISHED BLOOD VENOUS BLOOD SPECIMEN / Unknown 09/24/2025 5:42 AM EXPLOSIVES HANDLER Josemanuel Ely MD LABORATORY Final Result Performing Organization Address City/[facility] Co de Phone Number [facility] [address] [place] [address], [place] [phone] * CT ABD+PEL W CON (09/23/2025 10:27 AM EXPLOSIVES HANDLER) Anatomical Region Laterality Modality Abdomen Computed Tomogra phy 09/24/2025 9:16 AM EXPLOSIVES HANDLER Impressions 09/24/2025 9:28 AM EXPLOSIVES HANDLER IMPRESSION: 1. Worsening fluid distention of the mid to distal small bowel that has increased since the prior examination with increased interloop fluid. Note is made of alternating segments of small bowel wall thickening and thickening of the small bowel fold pattern. Additionally, there is new significant wall thickening of the ascending colon with bowel wall edema and increased fluid in the right pericolic gutter. Enteric contrast is present in the descending and sigmoid colon and rectum arguing against complete obstruction. While not completely specific, findings are suggestive of an inflammatory or infectious enterocolitis with superimposed functional partial obstruction. 2. Extensive three-vessel coronary artery calcifications. 3. Prostatomegaly. 4. 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 5. Stent in the left proximal thigh that appears occluded appearing similar to the prior examination. 6. Other findings as above. Referred By: PROVIDER NON-STAFF Interpreted By: Emile Espana DO, 09/24/2025 9:16 AM Narrative 09/24/2025 9:28 AM EXPLOSIVES HANDLER [address] [address] EXAMINATION: CT ABD+PEL W CON EXAM DATE: 09/23/2025 10:24 AM CLINICAL HISTORY: Small bowel obstruction without previous abdominal surgeries, incomplete resolution. COMPARISON: Abdomen radiographs 09/22/2025 and 09/21/2025. TECHNIQUE: Axial CT of the abdomen and pelvis was performed following intravenous administration of 100cc of Isovue-370. Coronal and sagittal reformatted reviewed. A radiation dose lowering technique was used for this procedure, which may include, but is not limited to, dose reduction technique, automated exposure control, the use of iterative reconstruction, ALARA (As Low As Reasonably Achievable) techniques, and Image Gently techniques FINDINGS: VISUALIZED LOWER THORAX: There are incompletely visualized pleural effusions appearing small in size, left greater than right, with associated passive atelectasis. There are calcified granulomas in the lower lobes. The heart is normal in size. There are extensive 3 vessel coronary artery calcifications. HEPATOBILIARY: The liver is normal in size without gross contour abnormality. No discrete hepatic lesion is seen. Biliary sludge layers dependently within an otherwise unremarkable gallbladder. There is no biliary ductal dilatation. The pancreas is negative. SPLEEN: The spleen is normal in size. GENITOURINARY: There is no adrenal mass. There are small bilateral renal cysts that require no routine follow-up per consensus guidelines. There is no hydronephrosis or perinephric abnormality. The urinary bladder is opacified with dilute iodinated contrast and demonstrates no abnormality. The prostate is enlarged. AORTA: There are atherosclerotic calcifications of the abdominal aorta without aneurysm formation. 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 There is a stent in the visualized left proximal thigh that appears occluded, appearing similar to the prior examination. LYMPH NODES: There is no retroperitoneal or pelvic adenopathy. GASTROINTESTINAL: The stomach and proximal small bowel are nondilated and. There is diffuse fluid distention of the mid to distal small bowel that has increased since the prior examination measuring up to 4 cm in diameter. There appear to be alternating segments of small bowel wall thickening and thickening of the small bowel fold pattern in the mid to distal small bowel. There is new significant wall thickening of the ascending colon with bowel wall edema. There is increased fluid in the right pericolic gutter as well as increased interloop fluid in in the pelvis. There is again seen gaseous distention of the transverse colon with relative narrowing of the descending and sigmoid colon. Enteric contrast is present in the descending and sigmoid colon and rectum. PERITONEUM: There is a moderate volume of free intraperitoneal fluid which is increased compared to the prior examination. There is no free intraperitoneal air. MUSCULOSKELETAL: Moderate to severe degenerative disc disease affects L4-5 and L5-S1. Mild multilevel degenerative disc disease affects the visualized lower thoracic spine. Multilevel facet joint osteoarthritis affects the lumbar spine. Mild to moderate osteoarthritis affects the left hip. Procedure Note Emile Espana, - 09/24/[address] [address] EXAMINATION: CT ABD+PEL W CON EXAM DATE: 09/23/2025 10:24 AM CLINICAL HISTORY: Small bowel obstruction without previous abdominalsurgeries, incomplete resolution. COMPARISON: Abdomen radiographs 09/22/2025 and 09/21/2025. TECHNIQUE: Axial CT of the abdomen and pelvis was performed following intravenousadministration of 100cc of Isovue-370. Coronal and sagittal reformattedreviewed. A radiation dose lowering technique was used for this procedure,which may include, but is not limited to, dose reduction technique,automated exposure control, the use of iterative reconstruction, ALARA (AsLow As Reasonably Achievable) techniques, and Image Gently techniques FINDINGS: VISUALIZED LOWER THORAX: There are incompletely visualized pleural effusions appearing small insize, left greater than right, with associated passive atelectasis. Thereare calcified granulomas in the lower lobes. The heart is normal in size.There are extensive 3 vessel coronary artery calcifications. HEPATOBILIARY: The liver is normal in size without gross contour abnormality. Nodiscrete hepatic lesion is seen. Biliary sludge layers dependently withinan otherwise unremarkable gallbladder. There is no biliary ductaldilatation. The pancreas is negative. SPLEEN: The spleen is normal in size. GENITOURINARY: There is no adrenal mass. There are small bilateral renal cysts thatrequire no routine follow-up per consensus guidelines. There is nohydronephrosis or perinephric abnormality. The urinary bladder isopacified with dilute iodinated contrast and demonstrates no abnormality.The prostate is enlarged. AORTA: There are atherosclerotic calcifications of the abdominal aorta withoutaneurysm formation. There is saccular aneurysm of the right common iliacartery measuring approximately 25 mm that appears similar to the priorexamination. There is a stent in the visualized left proximal thigh thatappears occluded, appearing similar to the prior examination. LYMPH NODES: There is no retroperitoneal or pelvic adenopathy. GASTROINTESTINAL: The stomach and proximal small bowel are nondilated and. There is diffusefluid distention of the mid to distal small bowel that has increased sincethe prior examination measuring up to 4 cm in diameter. There appear mildred alternating segments of small bowel wall thickening and thickening ofthe small bowel fold pattern in the mid to distal small bowel. There isnew significant wall thickening of the ascending colon with bowel walledema. There is increased fluid in the right pericolic gutter as well asincreased interloop fluid in in the pelvis. There is again seen gaseousdistention of the transverse colon with relative narrowing of thedescending and sigmoid colon. Enteric contrast is present in thedescending and sigmoid colon and rectum. PERITONEUM: There is a moderate volume of free intraperitoneal fluid which isincreased compared to the prior examination. There is no freeintraperitoneal air. MUSCULOSKELETAL: Moderate to severe degenerative disc disease affects L4-5 and L5-S1. Mildmultilevel degenerative disc disease affects the visualized lower thoracicspine. Multilevel facet joint osteoarthritis affects the lumbar spine.Mild to moderate osteoarthritis affects the left hip. IMPRESSION: 1. Worsening fluid distention of the mid to distal small bowel that hasincreased since the prior examination with increased interloop fluid.Note is made of alternating segments of small bowel wall thickening andthickening of the small bowel fold pattern. Additionally, there is newsignificant wall thickening of the ascending colon with bowel wall edemaand increased fluid in the right pericolic gutter. Enteric contrast ispresent in the descending and sigmoid colon and rectum arguing againstcomplete obstruction. While not completely specific, findings aresuggestive of an inflammatory or infectious enterocolitis withsuperimposed functional partial obstruction. 2. Extensive three-vessel coronary artery calcifications. 3. Prostatomegaly. 4. 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 5. Stent in the left proximal thigh that appears occluded appearingsimilar to the prior examination. 6. Other findings as above. Referred By: PROVIDER NON-STAFF Interpreted By: Emile Espana DO, 09/24/2025 9:16 AM us Clovis Rivera MD CT Final R esult * XR ABD KUB (09/22/2025 5:34 AM EXPLOSIVES HANDLER) Only the most recent of2 resultswithin the time period is included. Anatomical Region Laterality Modality Abdomen Radiographic Desi ging 09/22/2025 7:26 AM EXPLOSIVES HANDLER Impressions 09/22/2025 7:26 AM EXPLOSIVES HANDLER IMPRESSION: Previously administered contrast is within the colon Ordered By: CLOVIS RIVERA Interpreted By: Dhaval Brink MD, 09/22/2025 7:26 AM Narrative 09/22/2025 7:26 AM EXPLOSIVES HANDLER [address] [address] Two VIEW(s) OF THE ABDOMEN History: Ileus Comparison:September 21, 2025 2 views of the abdomen demonstrate the previously administered oral contrast to be within the colon. Multiple air-filled loops of small bowel in the midabdomen persist and are unchanged. There is no indication of free intraperitoneal air. The bony elements remain stable Procedure Note Dhaval Brink MD - 09/22/2025 [facility] [address] [place], [place] [address] Two VIEW(s) OF THE ABDOMEN History: Ileus Comparison:September 21, 2025 2 views of the abdomen demonstrate the previously administered oralcontrast to be within the colon. Multiple air-filled loops of small bowelin the midabdomen persist and are unchanged. There is no indication offree intraperitoneal air. The bony elements remain stable IMPRESSION: Previously administered contrast is within the colon Ordered By: CLOVIS RIVERA Interpreted By: Dhaval Brink MD, 09/22/2025 7:26 AM us Clovis Rivera MD GENERAL IMAGING Final R esult * XR CHEST PORTABLE (09/21/2025 10:29 PM EXPLOSIVES HANDLER) Only the most recent of2 resultswithin the time period is included. Anatomical Region Laterality Modality Chest Radiographic Desi ging 09/22/2025 12:0 1 AM EXPLOSIVES HANDLER Impressions 09/22/2025 12:08 AM EXPLOSIVES HANDLER IMPRESSION: 1. Developing left lower lobe opacification turning for pneumonia. 2. Adjacent, there is a small nodular opacity which is indeterminate. Consider CT chest to further evaluate. Referred By: PROVIDER NON-STAFF Interpreted By: Murtaza Valdez MD, 09/22/2025 12:01 AM Narrative 09/22/2025 12:08 AM EXPLOSIVES HANDLER [facility] [address] [place], [place] [address] INDICATION: SOB, cough COMPARISON: X-ray chest 09/20/2025 TECHNIQUE: Single AP image of the chest FINDINGS: Asymmetric left lower lobe opacification appears to have developed since 09/20/2025. Adjacent there is a small nodular opacity. No pleural effusion or pneumothorax. Cardiomediastinal silhouette and pulmonary vasculature are within normal limits. No acute osseous abnormality. Procedure Note Murtaza Valdez DO - 09/22/2025 [facility] [address] [place] [address] INDICATION: SOB, cough COMPARISON: X-ray chest 09/20/2025 TECHNIQUE: Single AP image of the chest FINDINGS: Asymmetric left lower lobe opacification appears to have developed since09/20/2025. Adjacent there is a small nodular opacity. No pleuraleffusion or pneumothorax. Cardiomediastinal silhouette and pulmonaryvasculature are within normal limits. No acute osseous abnormality. IMPRESSION: 1. Developing left lower lobe opacification turning for pneumonia. 2. Adjacent, there is a small nodular opacity which is indeterminate.Consider CT chest to further evaluate. Referred By: PROVIDER NON-STAFF Interpreted By: Murtaza Valdez MD, 09/22/2025 12:01 AM Devyn Harding MD GENERAL IMAGING Final Result * HEMOGLOBIN AND HEMATOCRIT (09/21/2025 6:28 PM EXPLOSIVES HANDLER) HGB 13.7 13.0 - 18.0 G/DL 09/21/2025 6:35 PM EXPLOSIVES HANDLER [facility] HCT 37.5 37.0 - 52.0 % 09/21/2025 6:35 PM EXPLOSIVES HANDLER [facility] BLOOD VENOUS BLOOD SPECIMEN / Unknown 09/21/2025 6:28 PM EXPLOSIVES HANDLER Sj Fraga MD LABORATORY Final Result [facility] [address] [place] [address], [id number] * XR ABD UPRIGHT (09/20/2025 1:24 PM EXPLOSIVES HANDLER) Only the most recent of2 resultswithin the time period is included. Anatomical Region Laterality Modality Abdomen Radiographic Desi ging 09/21/2025 8:10 AM EXPLOSIVES HANDLER Impressions 09/21/2025 8:13 AM EXPLOSIVES HANDLER IMPRESSION: 1. The enteric tube terminates within the proximal stomach. 2. Multiple dilated loops of small bowel within the upper abdomen. Continued attention on follow-up is recommended. Referred By: PROVIDER NON-STAFF Interpreted By: Keily Ko MD, 09/21/2025 8:10 AM Narrative 09/21/2025 8:13 AM EXPLOSIVES HANDLER [address] [address] PROCEDURE: XR ABD UPRIGHT HISTORY: Enteric tube placement. COMPARISON: X-ray abdomen upright . TECHNIQUE: A single view of the upper abdomen and lower chest was obtained with portable technique on 09/20/2025 at 1329 hours. FINDINGS: TUBE: The tip of the enteric tube terminates within the proximal stomach. LUNG BASES: There is subsegmental atelectasis at the lung bases. BOWEL GAS PATTERN: There are dilated loops of small bowel within the upper abdomen. There is gaseous distention of the stomach. FREE AIR: No free air is detected on this supine exam. CALCIFICATIONS/OTHER: None MUSCULOSKELETAL: Degenerative changes are seen in the visualized portions of the spine. Procedure Note Keily Ko MD - 09/21/[address] [address] PROCEDURE: XR ABD UPRIGHT HISTORY: Enteric tube placement. COMPARISON: X-ray abdomen upright . TECHNIQUE: A single view of the upper abdomen and lower chest wasobtained with portable technique on 09/20/2025 at 1329 hours. FINDINGS: TUBE: The tip of the enteric tube terminates within the proximalstomach. LUNG BASES: There is subsegmental atelectasis at the lung bases. BOWEL GAS PATTERN: There are dilated loops of small bowel within the upperabdomen. There is gaseous distention of the stomach. FREE AIR: No free air is detected on this supine exam. CALCIFICATIONS/OTHER: None MUSCULOSKELETAL: Degenerative changes are seen in the visualized portionsof the spine. IMPRESSION: 1. The enteric tube terminates within the proximal stomach. 2. Multiple dilated loops of small bowel within the upper abdomen.Continued attention on follow-up is recommended. Referred By: PROVIDER NON-STAFF Interpreted By: Keily Ko MD, 09/21/2025 8:10 AM us Tu Hicks MD GENERAL IMAGING Final Resul t * CULTURE, BACTERIA BLOOD X2 (09/20/2025 9:44 AM EXPLOSIVES HANDLER) Only the most recent of2 resultswithin the time period is included. SPEC DESCRIPTION BLOOD-VENOU S 09/20/2025 7:57 AM EXPLOSIVES HANDLER [facility] SPECIAL REQUESTS NO SPECIAL REQUEST 09/20/2025 7:57 AM EXPLOSIVES HANDLER [facility] CULTURE RESULT NO GROWTH 5 DAYS 09/25/2025 10:08 AM EXPLOSIVES HANDLER [facility] BLOOD VENOUS BLOOD SPECIMEN / Unknown 09/20/2025 9:44 AM EXPLOSIVES HANDLER 09/20/2025 9:45 AM EXPLOSIVES HANDLER Tu Hicks MD [facility] Final Result Performing Organization Address City/[facility]/ZIP Co de Phone Number [facility] [address] [place] [address], [id number] * Gastric PH (09/20/2025 5:08 AM EXPLOSIVES HANDLER) GASTRIC PH 3.0 1.3 - 7.8 09/20/2025 5:22 AM EXPLOSIVES HANDLER [facility] BODY FLUID (Gastric Antrum - Anterior Wall) 09/20/2025 5:08 AM EXPLOSIVES HANDLER Vincent Corley MD BODY FLUIDS AND STOOLS OR DERABLES Final Result [facility] [address] [place] [address], [place] [phone] * ECG 12 lead (09/19/2025 7:32 PM EXPLOSIVES HANDLER) ECG QT 337 [facility] ECG QTC 426 [facility] 09/19/2025 7:32 PM EXPLOSIVES HANDLER Narrative [facility] - 09/21/2025 3:11 AM EXPLOSIVES HANDLER SJS-ED Test Date: 2025-09-19 Pat Name: [facility] Department: 70 Room: [facility] Gender: Male 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: : 1950 Requested By: VINCENT CORLEY Order Number: [id number] Reading MD: Ziggy Ramos Measurements Intervals [facility] Rate: 96 P: 70 RI: 184 QRS: -47 QRSD: 101 T: 63 QT: 337 QTc: 426 Interpretive Statements SINUS RHYTHM LEFT ANTERIOR FASCICULAR BLOCK OSIVES HANDLER Procedure Note Ziggy Ramos MD - 09/21/2025 [facility]JS-ED Test Date: 2025-09-19 Pat Name: [facility] Department: 70 Room: 1120 Gender: Male 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 POTASSIUM S/P/B 4.3 3.5 - 5.1 MMOL/L 09/19/2025 7:[address] [facility] CHLORIDE S/P/B 106 97 - 115 MMOL/L 09/19/2025 7:[address] [facility] CO2 23.8 21.0 - 32.0 MMOL/L 09/19/2025 7:[address] [facility] GLUCOSE 122(H) 74 - 106 MG/DL 09/19/2025 7:[address] [facility] BUN 7 7 - 18 MG/DL 09/19/2025 7:[address] [facility] CREATININE S/P/B 0.72 0.70 - 1.30 MG/DL 09/19/2025 7:[address] [facility] CALCIUM S/P/B 9.3 8.5 - 10.1 MG/DL 09/19/2025 7:[address] [facility] BILIRUBIN TOTAL S/P/B 0.8 0.2 - 1.0 MG/DL 09/19/2025 7:[address] [facility] ALKALINE PHOSPHATASE S/P/B 71 45 - 115 U/L 09/19/2025 7:[address] [facility] AST 27 15 - 37 U/L 09/19/2025 7:[address] [facility] ALT 22 16 - 61 U/L 09/19/2025 7:[address] [facility] TOTAL PROTEIN S/P/B 6.8 6.4 - 8.2 G/DL 09/19/2025 7:[address] [facility] ALBUMIN S/P/B 3.9 3.4 - 5.0 G/DL 09/19/2025 7:09 PM EXPLOSIVES HANDLER [facility] ANION GAP 5.2 2.0 - 10.0 MMOL/L 09/19/2025 7:09 PM EXPLOSIVES HANDLER [facility] OSMOLALITY (CALC) 279 MOSM/KG 025 7:09 PM EXPLOSIVES HANDLER [facility] Comment:REFERENCE RANGE NOT ESTABLISHED GFR ESTIMATE >90 >90 ML/MIN/1. 73 M2 09/19/2025 7:09 PM EXPLOSIVES HANDLER [facility] GFR NOTES GFR REFERENCE S: 09/19/2025 7:[address] [facility] Comment: THE ESTIMATED GFR IS CALCULATED USING THE 2020 CKD-EPI EQUATION. THE FOLLOWING CATEGORIES FOR GRADING RENAL FUNCTION ARE RECOMMENDED BY THE INTERNATIONAL SOCIETY OF NEPHROLOGY (KDIGO 2012 CLINICAL PRACTICE GUIDELINE). G1,NORMAL OR HIGH: >89 ml/min/1.73 m2 G2,MILDLY DECREASED: 60-89 ml/min/1.73 m2 G3A,MILDLY TO MODERATELY DECREASED: 45-59 ml/min/1.73 m2 G3B,MODERATELY TO SEVERELY DECREASED: 30-44 ml/min/1.73 m2 G4,SEVERELY DECREASED: 15-29 ml/min/1.73 m2 G5,KIDNEY FAILURE: <15 ml/min/1.73 m2 BLOOD VENOUS BLOOD SPECIMEN / Unknown 09/19/2025 6:32 PM EXPLOSIVES HANDLER us Vincent Corley MD LABORATORY Final Res ult [facility] [address] [place] [id number], [id number] * (ABNORMAL) CBC W/DIFF AUTOMATED (09/19/2025 6:32 PM EXPLOSIVES HANDLER) WBC 8.03 4.00 - 10.80 x10'3/uL 09/19/2025 6:47 PM EXPLOSIVES HANDLER [facility] RBC 4.06(L) 4.50 - 6.10 x10'6/uL 09/19/2025 6:47 PM EXPLOSIVES HANDLER [facility] HGB 14.2 13.0 - 18.0 G/DL 09/19/2025 6:[address] [facility] HCT 39.8 37.0 - 52.0 % 09/19/2025 6:[address] [facility] MCV 98.0 78.0 - 100.0 FL 09/19/2025 6:[address] [facility] MCH 35.0(H) 27.0 - 31.0 PG 09/19/2025 6:[address] [facility] MCHC 35.7 33.0 - 36.0 G/DL 09/19/2025 6:[address] [facility] RDW 12.3 11.5 - 14.5 % 09/19/2025 6:[address] [facility] PLT 225 150 - 350 x10'3/uL 09/19/2025 6:[address] [facility] MPV 9.7 7.4 - 10.4 FL 09/19/2025 6:[address] [facility] DIFFERENTIAL TYPE AUTOMATED DIFFERENTIAL 09/19/2025 6:[address] [facility] SEG NEUTROPHILS 83.3 % 6:[address] [facility] LYMPHOCYTES 11.5 % 09/19/2025 6:[address] [facility] MONOCYTES 4.6 % 09/19/2025 6:[address] [facility] EOSINOPHILS 0.0 % 09/19/2025 6:[address] [facility] BASOPHILS 0.5 % 09/19/2025 6:[address] [facility] IMMATURE GRANS % 0.1 % 09/19/20 6:[address] [facility] ABS. NEUTROPHILS 6.69 1.60 - 8.30 x10'3/uL 09/19/2025 6:[address] [facility] ABS. LYMPHOCYTES 0.92 0.80 - 4.70 x10'3/uL 09/19/2025 6:47 PM EXPLOSIVES HANDLER [facility] ABS. MONOCYTES 0.37 0.00 - 1.50 x10'3/uL 09/19/2025 6:47 PM EXPLOSIVES HANDLER [facility] ABS. EOSINOPHILS 0.00 0.00 - 0.40 x10'3/uL 09/19/2025 6:47 PM EXPLOSIVES HANDLER [facility] ABS. BASOPHILS 0.04 0.00 - 0.20 x10'3/uL 09/19/2025 6:47 PM EXPLOSIVES HANDLER [facility] ABS. IMMATURE GRANULOCYTES 0.01 0.00 - 0.03 x10'3/uL 09/19/2025 6:47 PM EXPLOSIVES HANDLER [facility] ABS. NUCLEATED RBC'S 0.00 0.00 - 0.01 x10'3/uL 09/19/2025 6:47 PM EXPLOSIVES HANDLER [facility] NRBC % 0.0 % 09/19/2025 6:47 PM EXPLOSIVES HANDLER [facility] BLOOD VENOUS BLOOD SPECIMEN / Unknown 09/19/2025 6:32 PM EXPLOSIVES HANDLER Vincent Corley MD LABORATORY Final Res ult Performing Organization Address [facility] Co de Phone Number [facility] [address] [place] [address], [place] [phone] * LACTIC ACID W REFLEX (SEPSIS) (09/19/2025 6:32 PM EXPLOSIVES HANDLER) LACTIC ACID VENOUS 1.2 0.4 - 2.0 MMOL/L 09/19/2025 7:09 PM EXPLOSIVES HANDLER [facility] BLOOD VENOUS BLOOD SPECIMEN / Unknown 09/19/2025 6:32 PM EXPLOSIVES HANDLER Vincent Corley MD LABORATORY Final Res ult Performing Organization Address City/[facility]/ZIP Co de Phone Number [facility] [address] [place] [address], [place] [phone] * TYPE AND SCREEN (09/19/2025 6:32 PM EXPLOSIVES HANDLER) ABO/RH O POSITIVE 09/19/2025 7:37 PM EXPLOSIVES HANDLER [facility] ANTIBODY SCREEN NEGATIVE 09/19/2025 7:37 PM EXPLOSIVES HANDLER [facility] SAMPLE EXPIRATION 09/22/2025,2 359 09/19/2025 6:58 PM EXPLOSIVES HANDLER [facility] BLOOD VENOUS BLOOD SPECIMEN / Unknown 09/19/2025 6:32 PM EXPLOSIVES HANDLER us Vincent Corley MD BLOOD BANK TEST ORDERABLE S Final Result [facility] [address] [place] [address], [id number] * LIPID PANEL (08/01/2025 7:44 AM CDT) CHOLESTEROL 121 MG/DL 08/01/2025 11:53 AM CDT [facility] Comment:DESIRABLE: <200 TRIGLYCERIDES 36 MG/DL 08/01/2025 11:53 AM CDT [facility] Comment:<150 NORMAL HDL 91 >39 MG/DL 08/01/2025 11:53 AM CDT [facility] LDL-C 23 MG/DL 08/01/2025 11:53 AM CDT [facility] Comment: <100 OPTIMAL CALCULATED USING THE [employer]RI[employer]EWALD EQUATION VLDL CALCULATION 7 MG/DL 08/01/20 11:53 AM CDT [facility] Comment:REFERENCE RANGE NOT ESTABLISHED CHOL/HDL RATIO 1.3 08/01/2025 11:53 AM CDT [facility] Comment:REFERENCE RANGE NOT ESTABLISHED LDL/HDL 0.3 08/01/2025 11:53 AM CDT [facility] Comment:REFERENCE RANGE NOT ESTABLISHED NON HDL CHOLESTEROL 30 MG/DL 08/01/2025 11:53 AM CDT [facility] Comment:REFERENCE RANGE NOT ESTABLISHED 08/01/2025 7:44 AM CDT Ziggy Ramos MD LABORATORY Final Result [facility] [address] [place] [address], [id number] * CT LUNG SCREENING (01/17/2025 10:53 AM CDT) Anatomical Region Laterality Modality Chest Computed Tomogra phy 01/17/2025 4:00 PM CDT Narrative 01/17/2025 4:33 PM [address]T [address] [place] [address] EXAM: LUNG SCREENING LOW-DOSE CT THORAX WITHOUT CONTRAST DATE: HISTORY: Asymptomatic patient with history of smoking meeting CMS high-risk criteria for lung screening. * 74 years * 20 pack years or greater * Current smoker or have quit smoking within the last 15 years COMPARISON: 01/11/2024 CT abdomen screening TECHNIQUE: Noncontrast, helical, low-dose CT (LDCT) chest per standard departmental protocol. A dose lowering technique was used for this procedure, which may include, but is not limited to, dose reduction technique, automated exposure control, the use of iterative reconstruction, and ALARA (As Low As Reasonably Achievable) / Image Gently techniques. FINDINGS: Lung Screening Specific (LUNG-RADS): Scattered bilateral sub-6 mm pulmonary nodules are seen throughout the lungs, unchanged from 01/11/2024. These include the following: Nodule 1 (image 28, series 3): 2 mm solid, smooth, parenchymal nodule in the right upper lobe lateral periphery. Nodule 2 (image 75, series 3): 2 mm solid, smooth, parenchymal nodule in the right upper lobe. Potentially Significant Incidentals (LUNG-RADS category S): None. Pulmonary Incidentals: Moderate emphysematous centrilobular changes are noted. Regions of peribronchial thickening are noted, unchanged from , and favored to be secondary to chronic reactive airway disease/reactive hypertrophy. Other Incidentals: The heart is normal in size. Coronary artery calcifications and stents. The descending thoracic aorta is ectatic at 4 cm, unchanged from 01/11/2024. Thoracic spondylosis is seen. IMPRESSION; 1. LUNG-RADS category 2: Negative. Lung nodule(s) with benign appearance or behavior. 2. LUNG-RADS category S: Negative, no new/unknown potentially significant incidental findings requiring urgent additional evaluation. 3. Other incidental findings as above. RECOMMENDATIONS: Continued routine annual LDCT lung screening. Suggest next exam on or around January 2026 Thank you for choosing the [facility]. The attending radiologist has reviewed the image(s) and agrees with the content of this report. Ordered By: TRA LUCAS Interpreted By: Robert Castaneda MD, 01/17/2025 4:00 PM Procedure Note Rashaun White MD - 01/17/2025 [place] [id number] [facility] [id number] EXAM: LUNG SCREENING LOW-DOSE CT THORAX WITHOUT CONTRAST DATE: HISTORY: Asymptomatic patient with history of smoking meeting CMShigh-risk criteria for lung screening. * 74 years * 20 pack years or greater * Current smoker or have quit smoking within the last 15 years COMPARISON: 01/11/2024 CT abdomen screening TECHNIQUE: Noncontrast, helical, low-dose CT (LDCT) chest per standarddepartmental protocol. A dose lowering technique was used for thisprocedure, which may include, but is not limited to, dose reductiontechnique, automated exposure control, the use of iterativereconstruction, and ALARA (As Low As Reasonably Achievable) / Image Gentlytechniques. FINDINGS: Lung Screening Specific (LUNG-RADS): Scattered bilateral sub-6 mm pulmonary nodules are seen throughout thelungs, unchanged from 01/11/2024. These include the following: Nodule 1 (image 28, series 3): 2 mm solid, smooth, parenchymal nodule inthe right upper lobe lateral periphery. Nodule 2 (image 75, series 3): 2 mm solid, smooth, parenchymal nodule inthe right upper lobe. Potentially Significant Incidentals (LUNG-RADS category S): None. Pulmonary Incidentals: Moderate emphysematous centrilobular changes arenoted. Regions of peribronchial thickening are noted, unchanged from, and favored to be secondary to chronic reactive airwaydisease/reactive hypertrophy. Other Incidentals: The heart is normal in size. Coronary arterycalcifications and stents. The descending thoracic aorta is ectatic at 4cm, unchanged from 01/11/2024. Thoracic spondylosis is seen. IMPRESSION; 1. LUNG-RADS category 2: Negative. Lung nodule(s) with benign appearanceor behavior. 2. LUNG-RADS category S: Negative, no new/unknown potentially significantincidental findings requiring urgent additional evaluation. 3. Other incidental findings as above. RECOMMENDATIONS: Continued routine annual LDCT lung screening. Suggestnext exam on or around January 2026 Thank you for choosing the [facility]. The attending radiologist has reviewed the image(s) and agrees with thecontent of this report. Ordered By: TRA LUCAS Interpreted By: Robert Castaneda MD, 01/17/2025 4:[address] Final Result from Last 3 Months or Most Recently Relevant to Health Maintenance Insurance MEDICARE [facility] Advance Directives * Full Code (Latest Code Status on File) Date Activated Date Inactivated Comments 09/20/2025 8:52 AM 09/25/2025 1:32 PM * Full Code Date Activated Date Inactivated Comments 08/25/2024 3:59 PM 08/26/2024 3:56 PM Care Teams Rn Prior Authorization Relationship Specialty Start Date End Date Kaden Abrams MD [address] [place] [address] PCP - General INTERNAL MEDICINE 09/10/25 Luis Daniel Rose MD [address] [place] [address] ORTHOPAEDIC SURGERY 03/02/24 Ziggy Ramos MD [address] [facility] [address] [place], [place] [id number] Vascular/Plumbing Service Technician INTERVENTIONAL CARDIOLOGY 03/02/24 Gus Currie MD [address] [place], [place] [address] Consulting Physician Thoracic Surgery (Cardiothoracic Vascular Surgery) 07/28/24
[2025-10-24 10:26] LABS: Prostate Specific Antigen 3.6 ng/mL (< OR = 4.0)
== END 2025-10-23 14:20 | disposition home or self-care (01) ==
LOC: CHSLAB 14:22
PROVIDERS: PCP Internal Medicine; Visit Provider Internal Medicine
DX: M79.675 Pain in left toe(s) (principal); I73.9 Peripheral vascular disease, unspecified; M72.0 Palmar fascial fibromatosis [Dupuytren]; Z12.5 Encounter for screening for malignant neoplasm of prostate
CPT/HCPCS: 36415; 73630; 80053; 84153; 84550; 85027; 86140; G0103

== ENCOUNTER 2025-10-26 13:29 | Outpatient (CLI) | payer MEDICARE, SELFPAY ==
--- NOTE | ~2025-10-26 | US_ITS ---
EXAM/PROCEDURE: US arterial ankle brachial ind HISTORY: PAD,Dupuyremis contractanbce COMPARISON: None available. 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 The right CESAR is within normal limits. Consider correlation with dedicated duplex arterial interrogation of the left lower extremity. Reviewed, dictated and finalized at location A. [facility]ANNY IMPRESSION: Probably severe disease in the left lower extremity with suspected occlusion of the left dorsalis pedis artery. The right CESAR is within normal limits. Conside r correlation with dedicated duplex arterial interrogation of the left lower ex tremity.
--- OUTSIDE RECORDS SUMMARY | 2025-10-26 13:34 | XMS_ITS | Clinical Summary ---
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 03/09/2024 PVD (peripheral vascular disease) with claudicat ion 03/01/2024 Osteoarthritis of glenohumeral joints, bilateral 06/03/2020 Resolved Problems Problem Noted Date Diagnosed Date Resolved Date Small bowel obstruction 09/19/202509/08 Encounters Date Type Department Care Team Description 09/19/2025 5:49 PM SELENIUM PLANT OPERATOR - 09/25/2025 11:32 AM [facility] Hospital Encounter [place] [address] [place] [address] Aida Dave MD Suskin, MD Gladys Crockett Seif, MD [place], Tu Fiore MD Abdominal Pain Discharge Disposition: Home or Self Care (Routine Discharge) 09/19/2025 Travel 09/10/2025 Telephone [facility] [address] [place] [address] Ziggy Ramos MD Results 09/10/2025 Telephone [facility] [address] [place] [address] Ziggy Ramos MD Medication 09/05/2025 Telephone [facility] [address] [place] [address] Ziggy Ramos MD Reschedule (Clinic schedule change) 08/27/2025 Telephone [facility] [address] [place] [address] Ziggy Ramos MD Appointment Request 08/21/2025 2:45 PM CDT Office Visit [facility] [address] [place] [address] Ziggy Ramos MD Peripheral Vascular Disease; Follow Up; Hyperlipidemia 08/21/2025 Travel 08/20/2025 Orders Only [facility] [address] [place] [address] Ziggy Ramos MD 08/20/2025 Telephone [facility] [address] [place] [address] Ziggy Ramos MD Appointment Reminder 08/01/2025 7:30 AM CDT - 08/01/2025 11:59 PM CDT Hospital Encounter [place] [address] [place] [address] Ziggy Ramos MD Discharge Disposition: Home or [...] = 0.6 oz pu re alcohol) Beer [facility] Utilities Answer Date Recorded In the past [...] any time in the past 12 m [facility], were you homeless or living in a skilled nursing (including now)? No 08/26/2024 Humiliation, Afraid, Rape, [...] Never 09/20/2025 How often do you attend rastafarian or tenriism serv ices? Never 09/20/2025 Do you belong to any clubs o r organizations such as rastafarian groups, unions, fraternal or athletic groups, or [...] and heating? Not hard at all 09/20/2025 [facility] of Occupat ional Health - Occupational Stress [...] any time in the past 12 m [facility], were you homeless or living in a skilled nursing (including now)? No 09/20/2025 B1300 Health Literacy Answer Date Recor ded How often do you need to hav e someone help you when you read instructions, pamphlets, or other written material from your doctor or pharmacy? Never 09/20/[address] [facility] Utilities Answer Date Recorded In the past 12 months has e [employer], gas, oil, or water [employer] threatened to shut off services in your home? No 09/20/2025 Sex and Gender Information Value Date Recorded Sex Assigned at Male 12/19/2024 8:40 AM SELENIUM PLANT OPERATOR Legal Sex Male 7:55 PM CDT Gender Identity Not on file Sexual Orientation Not on file Last Filed Vital Signs Vital Sign Reading Time Taken Comments Blood Pressure 133/74 09/25/2025 7:45 AM SELENIUM PLANT OPERATOR Pulse 90 09/25/2025 7:45 AM SELENIUM PLANT OPERATOR Temperature 36.7 C (98.1 F) 09/25/2025 7:45 AM SELENIUM PLANT OPERATOR Respiratory Rate 18 09/23/2025 11:17 PM SELENIUM PLANT OPERATOR Oxygen Saturation 92% 09/25/2025 7:45 AM SELENIUM PLANT OPERATOR Inhaled Oxygen Concentration - - Weight 69.9 kg (154 lb 1.6 oz) 09/19/2025 5:56 P M SELENIUM PLANT OPERATOR Height 177.8 cm (5' 10) 09/19/2025 5:56 PM SELENIUM PLANT OPERATOR Body Mass Index 22.11 09/19/2025 5:56 PM SELENIUM PLANT OPERATOR Plan of Treatment Upcoming Encounters Date Type Department Care Team ([facility] st Contact Info) Description 09/03/2026 12:30 PM CDT Office Visit [facility] [place] [phone] Ziggy Ramos MD [address] [facility] [address] [place] [address] Health Maintenance Due Date Last Done Comments Hepatitis C 1966 Pneumococcal Vaccine: 50+ Years (1 of 2 - PCV) 1967 Zoster Vaccines (1 of 2) 1998 Annual Medicare Wellness Visit 2013 RSV Immunization or 60+ Years (1 - 1-dose 75+ series) 2023 PHQ-2 (Physician [place]) 11/08/2024 COVID-19 Vaccine ( - season) 2025 [...] this topic Medical Devices Implanted Type Area Gas Combustion Engineer Device Identifier Shelf Expiration Date Model / Serial / Lot Graft Cv 60cm 8mm 2 Velur; Strt Tube; Knitd; Sft; - [id number] Implanted:Qty: 1 on 08/25/2024 by Gus Currie MD at [facility] Graft [employer] [id number] 09/07/2028 [id number] / [id number] / [id number] Description:Inventory notifi ed - Yngwie Procedures Procedure Name Priority Date/Time Associated Diagnosis Comments PHOSPHORUS, INORGANIC PHOSPHATE TIMED 09/25/2025 4:10 AM SELENIUM PLANT OPERATOR MAGNESIUM TIMED 09/25/2025 4:10 AM SELENIUM PLANT OPERATOR BASIC METABOLIC PANEL TIMED 09/25/2025 4:10 AM SELENIUM PLANT OPERATOR HC CBC W/O DIFF TIMED 09/25/2025 4:10 AM SELENIUM PLANT OPERATOR FOLIC ACID SERUM Routine 09/24/2025 12:16 PM SELENIUM PLANT OPERATOR VITAMIN B-12 Routine 09/24/2025 12:16 PM SELENIUM PLANT OPERATOR GI PANEL PCR - STOOL Nurse Collected Priority 09/24/2025 11:30 AM SELENIUM PLANT OPERATOR IRON SAT PANEL (IRON,IBC,%SAT) Routine 09/24/2025 5:42 AM SELENIUM PLANT OPERATOR HC CBC W/O DIFF Routine 09/24/2025 5:42 AM SELENIUM PLANT OPERATOR BASIC METABOLIC PANEL Routine 09/24/2025 5:42 AM SELENIUM PLANT OPERATOR CT ABD+PEL W CON MADDY 09/23/2025 10:27 AM SELENIUM PLANT OPERATOR HC CBC W/O DIFF Routine 09/23/2025 5:21 AM SELENIUM PLANT OPERATOR BASIC METABOLIC PANEL Routine 09/23/2025 5:21 AM SELENIUM PLANT OPERATOR FOLIC ACID SERUM Routine 09/22/2025 10:04 AM SELENIUM PLANT OPERATOR VITAMIN B-12 Routine 09/22/2025 10:04 AM SELENIUM PLANT OPERATOR IRON SAT PANEL (IRON,IBC,%SAT) Routine 09/22/2025 10:04 AM SELENIUM PLANT OPERATOR PHOSPHORUS, INORGANIC PHOSPHATE Routine 09/22/2025 6:11 AM SELENIUM PLANT OPERATOR MAGNESIUM Routine 09/22/2025 6:11 AM SELENIUM PLANT OPERATOR BASIC METABOLIC PANEL Routine 09/22/2025 6:11 AM SELENIUM PLANT OPERATOR HC CBC W/O DIFF Routine 09/22/2025 6:11 AM SELENIUM PLANT OPERATOR XR ABD KUB Routine 09/22/2025 5:34 AM SELENIUM PLANT OPERATOR XR CHEST PORTABLE Today 09/21/2025 10:29 PM SELENIUM PLANT OPERATOR HEMOGLOBIN AND HEMATOCRIT STAT 09/21/2025 6:28 PM SELENIUM PLANT OPERATOR XR ABD KUB TIMED 09/21/2025 4:42 PM SELENIUM PLANT OPERATOR HC CBC W/O DIFF STAT 09/21/2025 6:47 AM SELENIUM PLANT OPERATOR MAGNESIUM Routine 09/21/2025 6:47 AM SELENIUM PLANT OPERATOR BASIC METABOLIC PANEL Routine 09/21/2025 6:47 AM SELENIUM PLANT OPERATOR PHOSPHORUS, INORGANIC PHOSPHATE Routine 09/21/2025 6:47 AM SELENIUM PLANT OPERATOR XR ABD UPRIGHT Today 09/20/2025 1:24 PM SELENIUM PLANT OPERATOR CULTURE, BACTERIA, BLOOD TIMED 09/20/2025 9:44 AM SELENIUM PLANT OPERATOR CULTURE, BACTERIA, BLOOD TIMED 09/20/2025 9:44 AM SELENIUM PLANT OPERATOR BASIC METABOLIC PANEL Routine 09/20/2025 6:10 AM SELENIUM PLANT OPERATOR HC CBC W/O DIFF Routine 09/20/2025 6:10 AM SELENIUM PLANT OPERATOR GASTRIC PH Nurse Collected Priority 09/20/2025 5:08 AM SELENIUM PLANT OPERATOR XR CHEST PORTABLE Routine 09/20/2025 4:2 3 AM SELENIUM PLANT OPERATOR XR ABD UPRIGHT STAT 09/19/2025 7:40 PM SELENIUM PLANT OPERATOR ECG 12-LEAD STAT 09/19/2025 7:32 PM SELENIUM PLANT OPERATOR HC BLOOD TYPING ABO STAT 09/19/2025 6 :32 PM SELENIUM PLANT OPERATOR LACTIC ACID W REFLEX (SEPSIS) STAT 09/19/2025 6:32 PM SELENIUM PLANT OPERATOR COMPREHENSIVE METABOLIC PANEL STAT 09/19/2025 6:32 PM SELENIUM PLANT OPERATOR HC CBC AUTO W/AUTO DIFF STAT 09/19/2025 6:32 PM SELENIUM PLANT OPERATOR HC LIPID PANEL Routine 08/01/2025 7:44 AM CDT PVD (peripheral vascular disease) with claudication Mixed hyperlipidemia CT LUNG SCREENING Routine 01/17/2025 10:53 AM CDT History of tobacco use disorder from Last 3 Months or Most Recently Relevant to Health Maintenance Results * PHOSPHORUS, INORGANIC PHOSPHATE (09/25/2025 4:10 AM SELENIUM PLANT OPERATOR) Only the most recent of3 resultswithin the time period is included. Pathologist [facility] PHOSPHORUS 2.6 2.5 - 4.9 MG/DL 09/25/2025 5:09 AM SELENIUM PLANT OPERATOR [facility] BLOOD VENOUS BLOOD SPECIMEN / Unknown 09/25/2025 4:10 AM SELENIUM PLANT OPERATOR Sj Fraga MD LABORATORY Final Result Performing Organization Address City/[facility]/ZIP Co de Phone Number [facility] [address] [place] [address], [id number] * MAGNESIUM (09/25/2025 4:10 AM SELENIUM PLANT OPERATOR) Only the most recent of3 resultswithin the time period is included. [facility] MAGNESIUM 1.7 1.6 - 2.6 MG/DL 09/25/2025 5:09 AM SELENIUM PLANT OPERATOR [facility] BLOOD VENOUS BLOOD SPECIMEN / Unknown 09/25/2025 4:10 AM SELENIUM PLANT OPERATOR Sj Fraga MD LABORATORY Final Result Performing Organization Address [facility] Co de Phone Number [facility] [address] [place] [address], [id number] * (ABNORMAL) CBC, AUTO, NO DIFF (09/25/2025 4:10 AM SELENIUM PLANT OPERATOR) Only the most recent of6 resultswithin the time period is included. [facility] WBC 8.28 4.00 - 10.80 x10'3/uL 09/25/2025 4:32 AM SELENIUM PLANT OPERATOR [facility] RBC 3.12(L) 4.50 - 6.10 x10'6/uL 09/25/2025 4:32 AM SELENIUM PLANT OPERATOR [facility] HGB 11.0(L) 13.0 - 18.0 G/DL 09/25/2025 4:32 AM SELENIUM PLANT OPERATOR [facility] HCT 30.7(L) 37.0 - 52.0 % 09/25/2025 4:32 AM [facility] MCV 98.4 78.0 - 100.0 FL 09/25/2025 4:32 AM [facility] MCH 35.3(H) 27.0 - 31.0 PG 09/25/2025 4:32 AM [facility] MCHC 35.8 33.0 - 36.0 G/DL 09/25/2025 4:32 AM [facility] RDW 12.1 11.5 - 14.5 % 09/25/2025 4:32 AM [facility] PLT 193 150 - 350 x10'3/uL 09/25/2025 4:32 AM [facility] MPV 9.7 7.4 - 10.4 FL 09/25/2025 4:32 AM [facility] BLOOD VENOUS BLOOD SPECIMEN / Unknown 09/25/2025 4:10 AM SELENIUM PLANT OPERATOR us Sj Fraga MD LABORATORY Final Result [facility] [address] [place] [address], [id number] * (ABNORMAL) BASIC METABOLIC PANEL (09/25/2025 4:10 AM SELENIUM PLANT OPERATOR) Only the most recent of6 resultswithin the time period is included. SODIUM S/P/B 136 136 - 145 MMOL/L 09/25/2025 5:09 AM [facility] POTASSIUM S/P/B 3.6 3.5 - 5.1 MMOL/L 09/25/2025 5:09 AM [facility] CHLORIDE S/P/B 106 97 - 115 MMOL/L 09/25/2025 5:09 AM [facility] CO2 24.6 21.0 - 32.0 MMOL/L 09/25/2025 5:09 AM SELENIUM PLANT OPERATOR [facility] GLUCOSE 96 74 - 106 MG/DL 09/25/2025 5:09 AM [facility] BUN 4(L) 7 - 18 MG/DL 09/25/2025 5:09 AM [facility] CREATININE S/P/B 0.44(L) 0.70 - 1.30 MG/DL 09/25/2025 5:09 AM [facility] CALCIUM S/P/B 8.0(L) 8.5 - 10.1 MG/DL 09/25/2025 5:09 AM [facility] ANION GAP 5.4 2.0 - 10.0 MMOL/L 09/25/2025 5:09 AM [facility] OSMOLALITY (CALC) 279 MOSM/KG 025 5:09 AM [facility] Comment:REFERENCE RANGE NOT ESTABLISHED GFR ESTIMATE >90 >90 ML/MIN/1. 73 M2 09/25/2025 5:09 AM [facility] GFR NOTES GFR REFERENCE S: 09/25/2025 5:09 AM [facility] Comment: THE ESTIMATED GFR IS CALCULATED [...] BLOOD SPECIMEN / Unknown 09/25/2025 4:10 AM SELENIUM PLANT OPERATOR us Sj Fraga MD LABORATORY Final Result [facility] [address] [place] [address], [id number] * (ABNORMAL) VITAMIN B-12 (09/24/2025 12:16 PM SELENIUM PLANT OPERATOR) Only the most recent of2 resultswithin the time period is included. [facility] VITAMIN B12 S/P/B 142(L) 193 - 986 PG/ML 09/24/2025 3:12 PM SELENIUM PLANT OPERATOR [facility] BLOOD VENOUS BLOOD SPECIMEN / Unknown 09/24/2025 12:16 PM SELENIUM PLANT OPERATOR Josemanuel Ely MD LABORATORY Final Result Performing Organization Address City/[facility]/ZIP Co de Phone Number [facility] [address] [place] [address], [id number] * FOLIC ACID SERUM (09/24/2025 12:16 PM SELENIUM PLANT OPERATOR) Only the most recent of2 resultswithin the time period is included. [facility] FOLATE 9.1 3.1 - 17.5 NG/ML 09/24/2025 3:12 PM SELENIUM PLANT OPERATOR [facility] BLOOD VENOUS BLOOD SPECIMEN / Unknown 09/24/2025 12:16 PM SELENIUM PLANT OPERATOR Josemanuel Ely MD LABORATORY Final Result Performing Organization Address [facility] Co de Phone Number [facility] [address] [place] [address], [id number] * GI PANEL PCR - STOOL (09/24/2025 11:30 AM SELENIUM PLANT OPERATOR) [facility] CAMPYLOBACTER PCR (STOOL) NOT DETECTED NOT DETECTED 09/25/2025 2:34 PM SELENIUM PLANT OPERATOR [facility] PLESIOMONAS SHIGELLOIDES PCR (STOOL) NOT DETECTED NOT DETECTED 09/25/2025 2:34 PM SELENIUM PLANT OPERATOR [facility] SALMONELLA PCR (STOOL) NOT DETECTED NOT DETECTED 09/25/2025 2:34 PM SELENIUM PLANT OPERATOR [facility] VIBRIO PCR (STOOL) NOT DETECTED NOT DETECTED 09/25/2025 2:34 PM [facility] VIBRIO CHOLERAE PCR (STOOL) NOT DETECTED NOT DETECTED 09/25/2025 2:34 PM [facility] YERSINIA ENTEROCOLITICA PCR (STOOL) NOT DETECTED NOT DETECTED 09/25/2025 2:34 PM [facility] ENTEROAGGREGATIVE ECOLI PCR (STOOL) NOT DETECTED NOT DETECTED 09/25/2025 2:34 PM [facility] ENTEROPATHOGENIC ECOLI PCR (STOOL) NOT DETECTED NOT DETECTED 09/25/2025 2:34 PM [facility] ENTEROTOXIGENIC ECOLI PCR (STOOL) NOT DETECTED NOT DETECTED 09/25/2025 2:34 PM [facility] SHIGA LIKE TOXIN ECOLI PCR (STOOL) NOT DETECTED NOT DETECTED 09/25/2025 2:34 PM [facility] SHIG/ENTEROINVASIVE ECOLI PCR (STOOL) NOT DETECTED NOT DETECTED 09/25/2025 2:34 PM [facility] CRYPTOSPORIDIUM PCR (STOOL) NOT DETECTED NOT DETECTED 09/25/2025 2:34 PM [facility] CYCLOSPORA CAYETANENSIS PCR (STOOL) NOT DETECTED NOT DETECTED 09/25/2025 2:34 PM [facility] ENTAMOEBA HISTOLYTICA PCR (STOOL) NOT DETECTED NOT DETECTED 09/25/2025 2:34 PM [facility] GIARDIA LAMBLIA PCR (STOOL) NOT DETECTED NOT DETECTED 09/25/2025 2:34 PM [facility] ADENOVIRUS F40/41 PCR (STOOL) NOT DETECTED NOT DETECTED 09/25/2025 2:34 PM [facility] ASTROVIRUS PCR (STOOL) NOT DETECTED NOT DETECTED 09/25/2025 2:34 PM [facility] NOROVIRUS GI/GII PCR (STOOL) NOT DETECTED NOT DETECTED 09/25/2025 2:34 PM [facility] ROTAVIRUS A PCR (STOOL) NOT DETECTED NOT DETECTED 09/25/2025 2:34 PM SELENIUM PLANT OPERATOR [facility] SAPOVIRUS PCR (STOOL) NOT DETECTED NOT DETECTED 09/25/2025 2:34 PM SELENIUM PLANT OPERATOR [facility] STOOL (Per Rectum) 09/24/2025 11:30 AM SELENIUM PLANT OPERATOR Lonnie Apple MD MICROBIOLOGY - GENERAL ORDERAB LES Final Result Performing Organization Address [facility] Co de Phone Number [facility] [address] [place] [address], [place] [phone] * (ABNORMAL) IRON SATURATION PANEL (FE,IBC,%SAT) (09/24/2025 5:42 AM SELENIUM PLANT OPERATOR) Only the most recent of2 resultswithin the time period is included. IRON 21(L) 65 - 175 MCG/DL 09/24/2025 11:07 AM [facility] IRON BINDING CAPACITY 176(L) 250 - 450 MCG/DL 09/24/2025 11:07 AM SELENIUM PLANT OPERATOR [facility] IRON SATURATION 12 % 11:07 AM SELENIUM PLANT OPERATOR [facility] Comment:REFERENCE RANGE NOT ESTABLISHED BLOOD VENOUS BLOOD SPECIMEN / Unknown 09/24/2025 5:42 AM SELENIUM PLANT OPERATOR Josemanuel Ely MD LABORATORY Final Result Performing Organization Address City/[facility] Co de Phone Number [facility] [address] [place] [address], [place] [phone] * CT ABD+PEL W CON (09/23/2025 10:27 AM SELENIUM PLANT OPERATOR) Anatomical Region Laterality Modality Abdomen Computed Tomogra phy 09/24/2025 9:16 AM SELENIUM PLANT OPERATOR Impressions 09/24/2025 9:28 AM SELENIUM PLANT OPERATOR IMPRESSION: 1. Worsening fluid distention of the [...] 09/24/2025 9:16 AM Narrative 09/24/2025 9:28 AM SELENIUM PLANT OPERATOR [address] [address] EXAMINATION: CT ABD+PEL W CON EXAM DATE: [...] hip. Procedure Note Emile Espana, - 09/24/[address] [address] EXAMINATION: CT ABD+PEL W CON EXAM DATE: [...] * XR ABD KUB (09/22/2025 5:34 AM SELENIUM PLANT OPERATOR) Only the most recent of2 resultswithin the time period is included. Anatomical Region Laterality Modality Abdomen Radiographic Desi ging 09/22/2025 7:26 AM SELENIUM PLANT OPERATOR Impressions 09/22/2025 7:26 AM SELENIUM PLANT OPERATOR IMPRESSION: Previously administered contrast is within the colon Ordered By: CLOVIS RIVERA Interpreted By: Dhaval Brink MD, 09/22/2025 7:26 AM Narrative 09/22/2025 7:26 AM SELENIUM PLANT OPERATOR [address] [address] Two VIEW(s) OF THE ABDOMEN History: Ileus Comparison:September 21, 2025 2 views of the abdomen demonstrate the previously administered oral contrast to be within the colon. Multiple air-filled loops of small bowel in the midabdomen persist and are unchanged. There is no indication of free intraperitoneal air. The bony elements remain stable Procedure Note Dhaval Brink MD - 09/22/[address] [facility] [address] [place], [place] [address] Two VIEW(s) OF THE ABDOMEN History: Ileus [...] * XR CHEST PORTABLE (09/21/2025 10:29 PM SELENIUM PLANT OPERATOR) Only the most recent of2 resultswithin the time period is included. Anatomical Region Laterality Modality Chest Radiographic Desi ging 09/22/2025 12:0 1 AM SELENIUM PLANT OPERATOR Impressions 09/22/2025 12:08 AM SELENIUM PLANT OPERATOR IMPRESSION: 1. Developing left lower lobe opacification turning for pneumonia. 2. Adjacent, there is a small nodular opacity which is indeterminate. Consider CT chest to further evaluate. Referred By: PROVIDER NON-STAFF Interpreted By: Murtaza Valdez MD, 09/22/2025 12:01 AM Narrative 09/22/2025 12:08 AM SELENIUM PLANT OPERATOR [facility] [address] [place], [place] [address] INDICATION: SOB, cough COMPARISON: X-ray chest 09/20/2025 TECHNIQUE: Single AP image of the chest FINDINGS: Asymmetric left lower lobe opacification appears to have developed since 09/20/2025. Adjacent there is a small nodular opacity. No pleural effusion or pneumothorax. Cardiomediastinal silhouette and pulmonary vasculature are within normal limits. No acute osseous abnormality. Procedure Note Murtaza Valdez DO - 09/22/[address] [facility] [address] [place] [address] INDICATION: SOB, cough COMPARISON: X-ray chest 09/20/2025 [...] * HEMOGLOBIN AND HEMATOCRIT (09/21/2025 6:28 PM SELENIUM PLANT OPERATOR) HGB 13.7 13.0 - 18.0 G/DL 09/21/2025 6:35 PM SELENIUM PLANT OPERATOR [facility] HCT 37.5 37.0 - 52.0 % 09/21/2025 6:35 PM SELENIUM PLANT OPERATOR [facility] BLOOD VENOUS BLOOD SPECIMEN / Unknown 09/21/2025 6:28 PM SELENIUM PLANT OPERATOR Sj Fraga MD LABORATORY Final Result [facility] [address] [place] [address], [id number] * XR ABD UPRIGHT (09/20/2025 1:24 PM SELENIUM PLANT OPERATOR) Only the most recent of2 resultswithin the time period is included. Anatomical Region Laterality Modality Abdomen Radiographic Desi ging 09/21/2025 8:10 AM SELENIUM PLANT OPERATOR Impressions 09/21/2025 8:13 AM SELENIUM PLANT OPERATOR IMPRESSION: 1. The enteric tube terminates within the proximal stomach. 2. Multiple dilated loops of small bowel within the upper abdomen. Continued attention on follow-up is recommended. Referred By: PROVIDER NON-STAFF Interpreted By: Keily Ko MD, 09/21/2025 8:10 AM Narrative 09/21/2025 8:13 AM SELENIUM PLANT OPERATOR [address] [address] PROCEDURE: XR ABD UPRIGHT HISTORY: Enteric tube [...] Procedure Note Keily Ko MD - 09/21/[address] [address] PROCEDURE: XR ABD UPRIGHT HISTORY: Enteric tube [...] CULTURE, BACTERIA BLOOD X2 (09/20/2025 9:44 AM SELENIUM PLANT OPERATOR) Only the most recent of2 resultswithin the time period is included. SPEC DESCRIPTION BLOOD-VENOU S 09/20/2025 7:57 AM SELENIUM PLANT OPERATOR [facility] SPECIAL REQUESTS NO SPECIAL REQUEST 09/20/2025 7:57 AM SELENIUM PLANT OPERATOR [facility] CULTURE RESULT NO GROWTH 5 DAYS 09/25/2025 10:08 AM SELENIUM PLANT OPERATOR [facility] BLOOD VENOUS BLOOD SPECIMEN / Unknown 09/20/2025 9:44 AM SELENIUM PLANT OPERATOR 09/20/2025 9:45 AM SELENIUM PLANT OPERATOR Tu Hicks MD [facility] Final Result Performing Organization Address City/[facility]/ZIP Co de Phone Number [facility] [address] [place] [address], [phone] * Gastric PH (09/20/2025 5:08 AM SELENIUM PLANT OPERATOR) GASTRIC PH 3.0 1.3 - 7.8 09/20/2025 5:22 AM SELENIUM PLANT OPERATOR [facility] BODY FLUID (Gastric Antrum - Anterior Wall) 09/20/2025 5:08 AM SELENIUM PLANT OPERATOR Vincent Corley MD BODY FLUIDS AND STOOLS OR DERABLES Final Result [facility] [address] [place] [address], [place] [phone] [id number] * ECG 12 lead (09/19/2025 7:32 PM [employer]) ECG QT 337 [facility] ECG QTC 426 [facility] 09/19/2025 7:32 PM [employer] Narrative [facility] - 09/21/2025 3:11 AM [employer] OPER[employer] [facility]JS-ED Test Date: 2025-09-19 Pat Name: [facility] Department: 70 Room: [facility] Gender: Male [employer] Tender: : 1950 Requested By: VINCENT CORLEY Order Number: [id number] Reading MD: Ziggy Ramos Measurements Intervals [place] Rate: 96 P: 70 AK: 184 QRS: -47 QRSD: 101 T: 63 QT: 337 QTc: 426 Interpretive Statements SINUS RHYTHM LEFT ANTERIOR FASCICULAR BLOCK [employer] Procedure Note Ziggy Ramos MD - 09/21/2025 [facility]JS-ED Test Date: 2025-09-19 Pat Name: [facility] Department: 70 Room: 1120 Gender: Male [employer] Tender: : 1950 Requested By: VINCENT CORLEY Order Number: [id number] Reading MD: Ziggy Ramos Measurements Intervals [place] Rate: 96 P: 70 AK: 184 QRS: -47 QRSD: 101 T: 63 QT: 337 QTc: 426 Interpretive Statements SINUS RHYTHM LEFT ANTERIOR FASCICULAR BLOCK [employer] OPERATOR us Vincent Corley MD ECG ORDERABLES Final Res ult [facility] [facility] * (ABNORMAL) COMPREHENSIVE METABOLIC PANEL (09/19/2025 6:32 PM [facility]) SODIUM S/P/B 135(L) 136 - 145 MMOL/L 09/19/2025 7:09 PM [facility] POTASSIUM S/P/B 4.3 3.5 - 5.1 MMOL/L 09/19/2025 7:09 PM [facility] CHLORIDE S/P/B 106 97 - 115 MMOL/L 09/19/2025 7:09 PM [facility] CO2 23.8 21.0 - 32.0 MMOL/L 09/19/2025 7:09 PM [facility] GLUCOSE 122(H) 74 - 106 MG/DL 09/19/2025 7:09 PM [facility] BUN 7 7 - 18 MG/DL 09/19/2025 7:09 PM [facility] CREATININE S/P/B 0.72 0.70 - 1.30 MG/DL 09/19/2025 7:09 PM [facility] CALCIUM S/P/B 9.3 8.5 - 10.1 MG/DL 09/19/2025 7:09 PM [facility] BILIRUBIN TOTAL S/P/B 0.8 0.2 - 1.0 MG/DL 09/19/2025 7:09 PM [facility] ALKALINE PHOSPHATASE S/P/B 71 45 - 115 U/L 09/19/2025 7:09 PM [facility] AST 27 15 - 37 U/L 09/19/2025 7:09 PM [facility] ALT 22 16 - 61 U/L 09/19/2025 7:09 PM [facility] TOTAL PROTEIN S/P/B 6.8 6.4 - 8.2 G/DL 09/19/2025 7:09 PM [facility] ALBUMIN S/P/B 3.9 3.4 - 5.0 G/DL 09/19/2025 7:09 PM SELENIUM PLANT OPERATOR [facility] ANION GAP 5.2 2.0 - 10.0 MMOL/L 09/19/2025 7:09 PM [employer] PL[employer] OPERATOR [facility] OSMOLALITY (CALC) 279 MOSM/KG 025 7:09 PM [employer]PER[employer] [facility] Comment:REFERENCE RANGE NOT ESTABLISHED GFR ESTIMATE >90 >90 ML/MIN/1. 73 M2 09/19/2025 7:09 PM SEL[employer]IUM PL[employer] OPERATOR [facility] GFR NOTES GFR REFERENCE S: 09/19/2025 7:09 PM [facility] Comment: THE ESTIMATED GFR IS CALCULATED [...] BLOOD SPECIMEN / Unknown 09/19/2025 6:32 PM S[employer] PLANT OPERATOR us Vincent Corley MD LABORATORY Final Res ult [facility] [address] [place] [phone], [id number] * (ABNORMAL) CBC W/DIFF AUTOMATED (09/19/2025 6:32 PM [employer]) WBC 8.03 4.00 - 10.80 x10'3/uL 09/19/2025 6:47 PM S[employer] OPER[employer] [facility] RBC 4.06(L) 4.50 - 6.10 x10'6/uL 09/19/2025 6:47 PM S[employer] OPERATOR [facility] HGB 14.2 13.0 - 18.0 G/DL 09/19/2025 6:47 PM [facility] HCT 39.8 37.0 - 52.0 % 09/19/2025 6:47 PM [facility] MCV 98.0 78.0 - 100.0 FL 09/19/2025 6:47 PM [facility] MCH 35.0(H) 27.0 - 31.0 PG 09/19/2025 6:47 PM [facility] MCHC 35.7 33.0 - 36.0 G/DL 09/19/2025 6:47 PM [facility] RDW 12.3 11.5 - 14.5 % 09/19/2025 6:47 PM [facility] PLT 225 150 - 350 x10'3/uL 09/19/2025 6:47 PM [facility] MPV 9.7 7.4 - 10.4 FL 09/19/2025 6:47 PM [facility] DIFFERENTIAL TYPE AUTOMATED DIFFERENTIAL 09/19/2025 6:47 PM [facility] SEG NEUTROPHILS 83.3 % 6:47 PM [facility] LYMPHOCYTES 11.5 % 09/19/2025 6:47 PM [facility] MONOCYTES 4.6 % 09/19/2025 6:47 PM [facility] EOSINOPHILS 0.0 % 09/19/2025 6:47 PM [facility] BASOPHILS 0.5 % 09/19/2025 6:47 PM [facility] IMMATURE GRANS % 0.1 % 09/19/20 6:47 PM [facility] ABS. NEUTROPHILS 6.69 1.60 - 8.30 x10'3/uL 09/19/2025 6:47 PM [facility] ABS. LYMPHOCYTES 0.92 0.80 - 4.70 x10'3/uL 09/19/2025 6:47 PM [employer] OPER[employer] [facility] ABS. MONOCYTES 0.37 0.00 - 1.50 x10'3/uL 09/19/2025 6:47 PM S[employer] OPERATOR [facility] ABS. EOSINOPHILS 0.00 0.00 - 0.40 x10'3/uL 09/19/2025 6:47 PM S[employer] OPERATOR [facility] ABS. BASOPHILS 0.04 0.00 - 0.20 x10'3/uL 09/19/2025 6:47 PM S[employer] OPERATOR [facility] ABS. IMMATURE GRANULOCYTES 0.01 0.00 - 0.03 x10'3/uL 09/19/2025 6:47 PM S[employer] OPERATOR [facility] ABS. NUCLEATED RBC'S 0.00 0.00 - 0.01 x10'3/uL 09/19/2025 6:47 PM [employer] OPER[employer] [facility] NRBC % 0.0 % 09/19/2025 6:47 PM [employer] OPERATOR [facility] BLOOD VENOUS BLOOD SPECIMEN / Unknown 09/19/2025 6:32 PM S[employer] OPERATOR Vincent Corley MD LABORATORY Final Res ult Performing Organization Address [facility] Co de Phone Number [facility] [address] [place] [address], [place] [phone] * LACTIC ACID W REFLEX (SEPSIS) (09/19/2025 6:32 PM [employer] OPER[employer]) LACTIC ACID VENOUS 1.2 0.4 - 2.0 MMOL/L 09/19/2025 7:09 PM [employer] OPERATOR [facility] BLOOD VENOUS BLOOD SPECIMEN / Unknown 09/19/2025 6:32 PM S[employer] OPERATOR Vincent Corley MD LABORATORY Final Res ult Performing Organization Address City/[facility]/ZIP Co de Phone Number [facility] [address] [place] [address], [place] [phone] * TYPE AND SCREEN (09/19/2025 6:32 PM S[employer] PL[employer] OPERATOR) ABO/RH O POSITIVE 09/19/2025 7:37 PM [employer] OPERATOR [facility] ANTIBODY SCREEN NEGATIVE 09/19/2025 7:37 PM [employer] OPERATOR [facility] SAMPLE EXPIRATION 09/22/2025,2 359 09/19/2025 6:58 PM [employer] OPERATOR [facility] BLOOD VENOUS BLOOD SPECIMEN / Unknown 09/19/2025 6:32 PM S[employer] OPERATOR us Vincent Corley MD BLOOD BANK TEST ORDERABLE S Final Result [facility] [address] [place] [address], [id number] * LIPID PANEL (08/01/2025 7:44 AM CDT) CHOLESTEROL 121 MG/DL 08/01/2025 11:53 AM CDT [facility] Comment:DESIRABLE: <200 TRIGLYCERIDES 36 MG/DL 08/01/2025 11:53 AM CDT [facility] Comment:<150 NORMAL HDL 91 >39 MG/DL 08/01/2025 11:53 AM CDT [facility] LDL-C 23 MG/DL 08/01/2025 11:53 AM CDT [facility] Comment: <100 OPTIMAL CALCULATED USING THE FRIEDEWALD EQUATION VLDL CALCULATION 7 MG/DL 08/01/20 11:53 AM CDT [facility] Comment:REFERENCE RANGE NOT ESTABLISHED CHOL/HDL RATIO 1.3 08/01/2025 11:53 AM CDT [facility] Comment:REFERENCE RANGE NOT ESTABLISHED LDL/HDL 0.3 08/01/2025 11:53 AM CDT [facility] Comment:REFERENCE RANGE NOT ESTABLISHED NON HDL CHOLESTEROL 30 MG/DL 08/01/2025 11:53 AM CDT [facility] Comment:REFERENCE RANGE NOT ESTABLISHED 08/01/2025 7:44 AM CDT Ziggy Ramos MD LABORATORY Final Result [facility] [address] [place] [address], [id number] * CT LUNG SCREENING (01/17/2025 10:53 AM CDT) Anatomical Region Laterality Modality Chest Computed Tomogra phy 01/17/2025 4:00 PM CDT Narrative 01/17/2025 4:33 PM [address]T [address] [place] [address] EXAM: LUNG SCREENING LOW-DOSE CT THORAX WITHOUT [...] January 2026 Thank you for choosing the [facility] Lung Screening Program. The attending radiologist has reviewed the image(s) and agrees with the content of this report. Ordered By: TRA LUCAS Interpreted By: Robert Castaneda MD, 01/17/2025 4:00 PM Procedure Note Rashaun White MD - 01/17/2025 [place] [id number] [place] [address] EXAM: LUNG SCREENING LOW-DOSE CT THORAX WITHOUT [...] January 2026 Thank you for choosing the [facility] Lung ScreeningProgram. The attending radiologist has reviewed the image(s) and agrees with thecontent of this report. Ordered By: TRA LUCAS Interpreted By: Robert Castaneda MD, 01/17/2025 4:[address] Final Result from Last 3 Months or Most Recently Relevant to Health Maintenance Insurance MEDICARE [facility] Advance Directives * Full Code (Latest Code Status on File) Date Activated Date Inactivated Comments 09/20/2025 8:52 AM 09/25/2025 1:32 PM * Full Code Date Activated Date Inactivated Comments 08/25/2024 3:59 PM 08/26/2024 3:56 PM Care Teams Agricultural Production Engineer Relationship Specialty Start Date End Date Kaden Abrams MD [address] [place] [address] PCP - General INTERNAL MEDICINE 09/10/25 Luis Daniel Rose MD [address] [place] [address] ORTHOPAEDIC SURGERY 03/02/24 Ziggy Ramos MD [address] [facility] [address] [place], [place] [address] Vascular/Fur Blower Operator INTERVENTIONAL CARDIOLOGY 03/02/24 Gus Currie MD [address] [place], [place] [address] Consulting Physician Thoracic Surgery (Cardiothoracic Vascular Surgery) 07/28/24
--- OUTSIDE RECORDS SUMMARY | 2025-10-26 13:34 | XMS_ITS | Encounter Summary ---
Author Organization [facility] Address [address] [place] [address] Care Team Providers Care Utility Teller Name Role Phone Rojas Easton MD Primary Care Provider [phone] Luis Daniel Rose MD Unavailable [phone] Ziggy Ramos MD Unavailable [phone] Gus Currie MD Unavailable [phone] Kaden Abrams MD Primary Care Provider [phone] Encounter Details Date Type Department Care Team (Late st Contact Info) Description 03/13/2024 Hospital Orders Only [employer] District Manager Postal Service Pre/Post [address] [place] [address] Ziggy Ramos MD [address] [facility] [address] [place] [address] Social History Tobacco Use Types Packs/Day Years [...] Sex Assigned at Male 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 Sex Male 7:55 PM CDT Gender Identity Not on file Sexual Orientation Not on file documented as of this encounter Functional Status * Calculated C-SSRS Risk Score (Lifetime/Recent) Answer Date of Assessment Author Status No Risk Indicated 03/16/2024 8:06 AM CDT Coy Flores RN Active * [place] Suicide Severity Rating Scale (Screener/Recent Self-Report) Question [...] Description 09/03/2026 12:30 PM CDT Office Visit [facility] [address] [place] [phone] Ziggy Ramos MD [address] [address] documented as of this encounter Visit Diagnoses Not on filedocumented in this encounter Care Teams Utility Teller Relationship Specialty Start Date End Date Rojas Easton MD PCP - General FAMILY PRACTICE 05/23/19 07/31/25 Kaden bArams MD [address] [place] [phone] PCP - General INTERNAL MEDICINE 09/10/25 Luis Daniel Rose MD [address] [place] [address] [place], [place] [id number] ORTHOPAEDIC SURGERY 03/02/24 Ziggy Ramos MD [address] [address] Vascular/Orange Grower INTERVENTIONAL CARDIOLOGY 03/02/24 Gus Currie MD [address] [place] [address] Consulting Physician Thoracic Surgery (Cardiothoracic Vascular Surgery) 07/28/24 documented as of this encounter
--- OUTSIDE RECORDS SUMMARY | 2025-10-26 13:34 | XMS_ITS | Encounter Summary ---
Author Organization [facility] Address [address] [place] [address] Care Team Providers Care Help Desk Associate Name Role Phone Rojas Easton MD Primary Care Provider [phone] Luis Daniel Rose MD Unavailable [phone] Ziggy Ramos MD Unavailable [phone] Gus Currie MD Unavailable [phone] Kaden Abrams MD Primary Care Provider [phone] Encounter Details Date Type Department Care Team (Late st Contact Info) Description 04/15/2019 Abstract [facility] CONVERSION [address] [place] [address] , Generic Conversion, Social History Tobacco Use Types Packs/Day Years Used Date Smoking Tobacco: Never Assessed Sex and Gender Information Value Date Recorded Sex Assigned at Male 12/19/2024 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 [address] [place] [phone] Ziggy Ramos MD [address] [facility] [address] [address] documented as of this encounter Visit Diagnoses Not on filedocumented in this encounter Care Teams Help Desk Associate Relationship Specialty Start Date End Date Rojas Easton MD PCP - General FAMILY PRACTICE 05/23/19 07/31/25 Kaden Abrams MD [address] [place] [address] PCP - General INTERNAL MEDICINE 09/10/25 Luis Daniel Rose MD [address] [facility] [address] ORTHOPAEDIC SURGERY 03/02/24 Ziggy Ramos MD [address] [facility] [address] [address] Vascular/Beaver Trapper INTERVENTIONAL CARDIOLOGY 03/02/24 Gus Currie MD [address] [place] [address] Consulting Physician Thoracic Surgery (Cardiothoracic Vascular Surgery) 07/28/24 documented as of this encounter
--- OUTSIDE RECORDS SUMMARY | 2025-10-26 13:34 | XMS_ITS | Encounter Summary ---
Author Organization [facility] Address [address] [place] [address] Care Team Providers Care Garbage Collector Name Role Phone Rojas Easton MD Primary Care Provider [phone] Luis Daniel Rose MD Unavailable [phone] Ziggy Ramos MD Unavailable [phone] Gus Currie MD Unavailable [phone] Kaden Abrams MD Primary Care Provider [phone] Encounter Details Date Type Department Care Team ([facility] Contact Info) Description 03/14/2024 Prep for Procedure [facility] eld [address] [place] [address] Ziggy Ramos MD [address] [facility] [address] [place] [address] Social History Tobacco Use Types Packs/Day Years [...] Sex Assigned at Male 12/19/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 Legal Sex Male 7:55 PM CDT Gender Identity Not on file Sexual Orientation Not on file documented as of this encounter Functional Status * Calculated C-SSRS Risk Score (Lifetime/Recent) Answer Date of Assessment Author Status No Risk Indicated 03/16/2024 8:06 AM CDT Coy Flores RN Active * [place] Suicide Severity Rating Scale (Screener/Recent Self-Report) Question [...] Description 09/03/2026 12:30 PM CDT Office Visit [facility] [address] [place] [address] Ziggy Ramos MD [address] [address] documented as of this encounter Visit Diagnoses Not on filedocumented in this encounter Care Teams Garbage Collector Relationship Specialty Start Date End Date Rojas Easton MD PCP - General FAMILY PRACTICE 05/23/19 07/31/25 Kaden Abrams MD [address] [place] [phone] PCP - General INTERNAL MEDICINE 09/10/25 Luis Daniel Rose MD [address] [place] [address] [place], [place] [phone] ORTHOPAEDIC SURGERY 03/02/24 Ziggy Ramos MD [address] [address] Vascular/Scraper Tender INTERVENTIONAL CARDIOLOGY 03/02/24 Gus Currie MD [address] [place] [address] Consulting Physician Thoracic Surgery (Cardiothoracic Vascular Surgery) 07/28/24 documented as of this encounter
== END 2025-10-26 13:30 | disposition home or self-care (01) ==
PROVIDERS: PCP Internal Medicine; Visit Provider Internal Medicine
DX: M79.675 Pain in left toe(s) (principal); I73.9 Peripheral vascular disease, unspecified; M72.0 Palmar fascial fibromatosis [Dupuytren]
CPT/HCPCS: 93922